=== PATIENT | female | born 1935 | race Caucasian/White ===

== ENCOUNTER 2020-11-12 09:00 | Inpatient (IN) | payer OTHER, MEDICARE, SELFPAY ==
[~2020-11-12] VITALS: Ht 149.9 cm; Wt 79.4 kg
[2020-11-12 09:00] VITALS: BP_SYST 136
[2020-11-12] MEDS ORDERED: DEXTROSE 50% JECT 50 ML DISP.SYRIN ONE (09:14)
[2020-11-12] MEDS ORDERED: POTA20TA83 PO (09:29)
[2020-11-12] MEDS ORDERED: SITA100T11 PO (09:29)
[2020-11-12] MEDS ORDERED: LEVO75TA7 PO (09:29)
[2020-11-12] MEDS ORDERED: FURO-149 PO (09:32)
[2020-11-12] MEDS ORDERED: INSU100V9 SQ (09:32)
[2020-11-12] MEDS ORDERED: LOSA100T3 PO (09:32)
[2020-11-12] MEDS ORDERED: HYDR25TA4 PO (09:32)
[2020-11-12] MEDS ORDERED: APIX2.5T PO (09:32)
[2020-11-12] MEDS ORDERED: GLIM2TAB PO (09:32)
[2020-11-12] MEDS ORDERED: MEMA5TAB PO (09:32)
[2020-11-12 09:50] LABS: ANION GAP 9 (5-15); CALCIUM 9.2 mg/dL (8.4-11.0); CHLORIDE 107 mmol/L (98-107); CREATININE 1.52 mg/dL (0.55-1.30); GLUCOSE 61 mg/dL (70-99); HEMOGLOBIN 10.5 g/dL (12.0-16.0); NEUTROPHILS # (AUTO) 3.9 K/uL (1.8-7.7); POTASSIUM 3.3 mmol/L (3.5-5.1); RED CELL DISTRIBUTION WIDTH 13.6 % (9.0-15.0); SODIUM SERUM 145 mmol/L (136-145); UREA NITROGEN, BLOOD 57 mg/dL (8-21); WHITE BLOOD COUNT (AUTO) 5.6 K/uL (4.8-10.8)
[2020-11-12 09:56] LABS: BASOPHILS % (AUTO) 0.3 % (0.0-2.0); EOSINOPHILS # (AUTO) 0.4 K/uL (0.0-0.4); EOSINOPHILS % (AUTO) 6.8 % (0.0-4.0); LYMPHOCYTES # (AUTO) 0.7 K/uL (1.0-5.5); LYMPHOCYTES % (AUTO) 11.8 % (20.5-51.5); MEAN CORPUSCULAR HEMOGLOBIN 32 pg (27-31); MEAN CORPUSCULAR HGB CONC 33 % (32-36); MEAN CORPUSCULAR VOLUME 97 fL (79.0-98.0); MONOCYTES # (AUTO) 0.6 K/uL (0.0-1.0); MONOCYTES % (AUTO) 11.2 % (1.7-9.3); NEUTROPHILS % (AUTO) 69.9 % (40.0-70.0); PLATELET COUNT (AUTO) 139 K/uL (130-430); RED BLOOD CELL COUNT(AUTO) 3.32 MIL/uL (4.2-6.2)
[2020-11-12 09:59] LABS: ALANINE AMINOTRANSFERASE 16 U/L (12-78); ALBUMIN 3.5 g/dL (3.4-4.8); ASPARTATE AMINOTRANSFERASE 28 U/L (10-37); LIPASE 76 U/L (73-393); TOTAL BILIRUBIN 0.3 mg/dL (0.0-1.0)
[2020-11-12 10:05] LABS: BILIRUBIN,URINE NEGATIVE (NEGATIVE); BLOOD, URINE NEGATIVE (NEGATIVE); CLARITY/URINE CLEAR (CLEAR); COLOR,URINE YELLOW (YELLOW); GLUCOSE,URINE NEGATIVE (NEGATIVE); KETONES,URINE NEGATIVE (NEGATIVE); LEUKOCYTE ESTERASE ,URINE NEGATIVE (NEGATIVE); NITRITE, URINE NEGATIVE (NEGATIVE); PROTEIN URINE NEGATIVE (NEGATIVE); UROBILINOGEN,URINE 0.2 (0.2-1.0)
[2020-11-12] MEDS ORDERED: POTASSIUM CHLORIDE 20 MEQ TAB.PRT.SR PO ONE ×2 (10:15→14:00)
[2020-11-12] MEDS ORDERED: D5LR 1,000 ML IV ONE (12:00)
[2020-11-12] MEDS ORDERED: DEXTROSE 50% JECT 50 ML DISP.SYRIN IVP PRN (13:15)
[2020-11-12] MEDS ORDERED: ONDANSETRON HCL 4 MG/2 ML VIAL IVP PRN (13:45)
[2020-11-12] MEDS ORDERED: DOCUSATE SODIUM 100 MG CAPSULE PO ONE (13:45)
[2020-11-12] MEDS ORDERED: ACETAMINOPHEN 325 MG TABLET PO PRN (13:45)
[2020-11-12] MEDS ORDERED: PANTOPRAZOLE SODIUM 40 MG TAB PO ONE (13:45)
[2020-11-12 13:52] LABS: TOTAL IRON BIND. CAPACITY 287 ug/dL (250-450)
[2020-11-12] MEDS ORDERED: MEMANTINE HCL 5 MG TABLET PO ONE (14:00)
[2020-11-12] MEDS ORDERED: LEVOTHYROXINE SODIUM 0.075 MG TABLET PO ONE (14:00)
[2020-11-12] MEDS ORDERED: APIXABAN 2.5 MG TABLET PO ONE (14:00)
[2020-11-12] MEDS ORDERED: LOSARTAN POTASSIUM 50 MG TABLET (COZAAR) PO ONE (14:00)
[2020-11-12 16:15] VITALS: BP_SYST 139
[2020-11-12 20:00] VITALS: BP_SYST 138
[2020-11-12] MEDS: DOCUSATE SODIUM 100 MG CAPSULE PO SCH (20:55)
[2020-11-12] MEDS: INSULIN REGULAR, HUMAN 100 UNITS/ML, 10 ML VIAL (humuLIN R) SUBCUT PRN (20:58)
[2020-11-13 01:41] VITALS: BP_SYST 147
[2020-11-13 05:50] LABS: BASOPHILS % (AUTO) 0.3 % (0.0-2.0); EOSINOPHILS # (AUTO) 0.4 K/uL (0.0-0.4); EOSINOPHILS % (AUTO) 5.7 % (0.0-4.0); HEMATOCRIT 29.9 % (36-48); HEMOGLOBIN 9.9 g/dL (12.0-16.0); LYMPHOCYTES # (AUTO) 0.9 K/uL (1.0-5.5); LYMPHOCYTES % (AUTO) 13.2 % (20.5-51.5); MEAN CORPUSCULAR HEMOGLOBIN 32 pg (27-31); MEAN CORPUSCULAR HGB CONC 33 % (32-36); MEAN CORPUSCULAR VOLUME 95 fL (79.0-98.0); MONOCYTES # (AUTO) 0.9 K/uL (0.0-1.0); MONOCYTES % (AUTO) 12.6 % (1.7-9.3); NEUTROPHILS # (AUTO) 4.9 K/uL (1.8-7.7); NEUTROPHILS % (AUTO) 68.2 % (40.0-70.0); PLATELET COUNT (AUTO) 135 K/uL (130-430); RED BLOOD CELL COUNT(AUTO) 3.15 MIL/uL (4.2-6.2); RED CELL DISTRIBUTION WIDTH 13.2 % (9.0-15.0); WHITE BLOOD COUNT (AUTO) 7.2 K/uL (4.8-10.8)
[2020-11-13 06:06] LABS: FOLATE (FOLIC ACID) 18.3 ng/mL (>3.0)
[2020-11-13 06:07] LABS: ALANINE AMINOTRANSFERASE 17 U/L (12-78); ALBUMIN 2.7 g/dL (3.4-4.8); ANION GAP 4 (5-15); ASPARTATE AMINOTRANSFERASE 19 U/L (10-37); CALCIUM 8.3 mg/dL (8.4-11.0); CHLORIDE 111 mmol/L (98-107); CREATININE 1.42 mg/dL (0.55-1.30); GLUCOSE 147 mg/dL (70-99); POTASSIUM 4.3 mmol/L (3.5-5.1); SODIUM SERUM 144 mmol/L (136-145); TOTAL BILIRUBIN 0.4 mg/dL (0.0-1.0); UREA NITROGEN, BLOOD 43 mg/dL (8-21)
[2020-11-13] MEDS: LEVOTHYROXINE SODIUM 0.075 MG TABLET PO SCH (06:27)
[2020-11-13 08:08] VITALS: BP_SYST 137
[2020-11-13] MEDS: LOSARTAN POTASSIUM 50 MG TABLET (COZAAR) PO SCH (08:13)
[2020-11-13] MEDS: PANTOPRAZOLE SODIUM 40 MG TAB PO SCH (08:16)
[2020-11-13] MEDS: MEMANTINE HCL 5 MG TABLET PO SCH (08:16)
[2020-11-13] MEDS: DOCUSATE SODIUM 100 MG CAPSULE PO SCH (08:46)
[2020-11-13] MEDS ORDERED: APIXABAN 2.5 MG TABLET PO SCH (09:00)
[2020-11-13] MEDS ORDERED: POTASSIUM CHLORIDE 20 MEQ TAB.PRT.SR PO SCH (09:00)
[2020-11-13 10:56] LABS: CHOLESTEROL 131 mg/dL (<200); HDL CHOLESTEROL 59 mg/dL (>55); LDL CHOLESTEROL 70 mg/dL (<100); TRIGLYCERIDES 66 mg/dL (30-150)
[2020-11-13 12:00] VITALS: BP_SYST 131
[2020-11-13] MEDS ORDERED: BALSAM PERU/CASTOR OIL 60 GM OINT...G. TP ONE (15:45)
[2020-11-13 16:00] VITALS: BP_SYST 129
[2020-11-13] MEDS: INSULIN REGULAR, HUMAN 100 UNITS/ML, 10 ML VIAL (humuLIN R) SUBCUT PRN (21:01)
[2020-11-13] MEDS: APIXABAN 2.5 MG TABLET PO SCH (21:02)
[2020-11-14 01:32] VITALS: BP_SYST 152
[2020-11-14] MEDS: LEVOTHYROXINE SODIUM 0.075 MG TABLET PO SCH (06:26)
[2020-11-14 06:39] LABS: BASOPHILS % (AUTO) 0.4 % (0.0-2.0); EOSINOPHILS # (AUTO) 0.5 K/uL (0.0-0.4); EOSINOPHILS % (AUTO) 4.9 % (0.0-4.0); HEMATOCRIT 33.1 % (36-48); HEMOGLOBIN 10.9 g/dL (12.0-16.0); LYMPHOCYTES # (AUTO) 0.9 K/uL (1.0-5.5); LYMPHOCYTES % (AUTO) 9.3 % (20.5-51.5); MEAN CORPUSCULAR HEMOGLOBIN 32 pg (27-31); MEAN CORPUSCULAR HGB CONC 33 % (32-36); MEAN CORPUSCULAR VOLUME 96 fL (79.0-98.0); MONOCYTES # (AUTO) 0.7 K/uL (0.0-1.0); MONOCYTES % (AUTO) 7.3 % (1.7-9.3); NEUTROPHILS # (AUTO) 7.4 K/uL (1.8-7.7); NEUTROPHILS % (AUTO) 78.1 % (40.0-70.0); PLATELET COUNT (AUTO) 139 K/uL (130-430); RED BLOOD CELL COUNT(AUTO) 3.45 MIL/uL (4.2-6.2); RED CELL DISTRIBUTION WIDTH 13.5 % (9.0-15.0); WHITE BLOOD COUNT (AUTO) 9.5 K/uL (4.8-10.8)
[2020-11-14 06:47] LABS: ANION GAP 6 (5-15); CALCIUM 8.6 mg/dL (8.4-11.0); CHLORIDE 110 mmol/L (98-107); CREATININE 1.14 mg/dL (0.55-1.30); GLUCOSE 135 mg/dL (70-99); POTASSIUM 3.9 mmol/L (3.5-5.1); SODIUM SERUM 145 mmol/L (136-145); UREA NITROGEN, BLOOD 32 mg/dL (8-21)
[2020-11-14 08:00] VITALS: BP_SYST 126
[2020-11-14] MEDS: PANTOPRAZOLE SODIUM 40 MG TAB PO SCH (08:54)
[2020-11-14] MEDS: MEMANTINE HCL 5 MG TABLET PO SCH (08:54)
[2020-11-14] MEDS: LOSARTAN POTASSIUM 50 MG TABLET (COZAAR) PO SCH (08:55)
[2020-11-14] MEDS: APIXABAN 2.5 MG TABLET PO SCH (08:56)
[2020-11-14] MEDS ORDERED: BALSAM PERU/CASTOR OIL 60 GM OINT...G. TP SCH (09:00)
[2020-11-14] MEDS ORDERED: MULTIVITS,CA,MINERALS/IRON/FA 1 TABLET PO SCH (09:00)
[2020-11-14] MEDS ORDERED: DILTIAZEM HCL 25 MG/5 ML VIAL IVP PRN (09:15)
[2020-11-14 12:13] VITALS: BP_SYST 127
[2020-11-14 13:44] VITALS: BP_SYST 104
[2020-11-14 16:04] VITALS: BP_SYST 104
== END 2020-11-14 17:20 | disposition home health service (06) | DRG 70 ==
LOC: SED 09:00 → STU 11:58
PROVIDERS: ADMIT Internal Medicine; ATTEND Internal Medicine
DX: G93.41 Metabolic encephalopathy (principal); I21.A1 Myocardial infarction type 2; N17.0 Acute kidney failure with tubular necrosis; D68.59 Other primary thrombophilia; E44.0 Moderate protein-calorie malnutrition; E11.649 Type 2 diabetes mellitus with hypoglycemia without coma; E87.6 Hypokalemia; E03.9 Hypothyroidism, unspecified; D64.9 Anemia, unspecified; E86.0 Dehydration; I48.0 Paroxysmal atrial fibrillation; E66.9 Obesity, unspecified; Z20.822 Contact with and (suspected) exposure to COVID-19; I10 Essential (primary) hypertension; F03.90 Unspecified dementia, unspecified severity, without behavioral disturbance, psychotic disturbance, mood disturbance, and anxiety; T50.2X5A Adverse effect of carbonic-anhydrase inhibitors, benzothiadiazides and other diuretics, initial encounter; Z79.01 Long term (current) use of anticoagulants; Z79.899 Other long term (current) drug therapy; Z95.2 Presence of prosthetic heart valve; Z79.4 Long term (current) use of insulin; Z86.73 Personal history of transient ischemic attack (TIA), and cerebral infarction without residual deficits; Y92.89 Other specified places as the place of occurrence of the external cause; Z68.35 Body mass index [BMI] 35.0-35.9, adult
CPT/HCPCS: 36415; 71045; 80048; 80053; 80061; 81003; 82607; 82746; 82962; 83036; 83540; 83550; 83690; 84484; 85025; 93005; 93306; 96360; 97116-GP; 97530-GP; 99285; G0378; J1815

== ENCOUNTER 2021-11-14 10:12 | Inpatient (IN) | payer OTHER, MEDICARE ==
[~2021-11-14] VITALS: Ht 152.4 cm; Wt 73.1 kg
[2021-11-14 10:12] VITALS: BP_SYST 115
[~2021-11-14 10:12] MED LIST: APIX2.5T PO; LEVO75TA7 PO; LOSA100T3 PO; MEMA5TAB PO; SITA100T11 PO
[2021-11-14] MEDS ORDERED: ASPIRIN 81 MG TAB.CHEW PO ONE (10:30)
--- NOTE | 2021-11-14 10:34 | NUR ---
Pt present via EMS with report of SOB. Pt currently in afib w. RVR rtae in the 140s. 20G started on pt. pt placed on 2L in bed 1
--- NOTE | 2021-11-14 10:35 | NUR ---
Pt seen by ED physician at bedside
[2021-11-14 10:40] LABS: BASOPHILS % (AUTO) 0.4 % (0.0-2.0); EOSINOPHILS # (AUTO) 0.3 K/uL (0.0-0.4); EOSINOPHILS % (AUTO) 3.4 % (0.0-4.0); HEMATOCRIT 30.3 % (36-48); LYMPHOCYTES # (AUTO) 0.5 K/uL (1.0-5.5); LYMPHOCYTES % (AUTO) 5.5 % (20.5-51.5); MEAN CORPUSCULAR HEMOGLOBIN 31 pg (27-31); MEAN CORPUSCULAR HGB CONC 33 % (32-36); MEAN CORPUSCULAR VOLUME 93 fL (79.0-98.0); MONOCYTES # (AUTO) 1.2 K/uL (0.0-1.0); MONOCYTES % (AUTO) 13.7 % (1.7-9.3); NEUTROPHILS # (AUTO) 6.6 K/uL (1.8-7.7); PLATELET COUNT (AUTO) 222 K/uL (130-430); RED BLOOD CELL COUNT(AUTO) 3.26 MIL/uL (4.2-6.2); RED CELL DISTRIBUTION WIDTH 13.6 % (9.0-15.0); WHITE BLOOD COUNT (AUTO) 8.5 K/uL (4.8-10.8)
[2021-11-14] MEDS ORDERED: dilTIAZem HCL IVP 5 MG/ML VIAL IVP ONE ×2 (10:45→11:15)
[2021-11-14 10:49] LABS: ANION GAP 10 (5-15); CALCIUM 8.8 mg/dL (8.4-11.0); CHLORIDE 106 mmol/L (98-107); CREATININE 1.36 mg/dL (0.55-1.30); GLUCOSE 171 mg/dL (70-99); POTASSIUM 3.8 mmol/L (3.5-5.1); SODIUM SERUM 140 mmol/L (136-145); UREA NITROGEN, BLOOD 39 mg/dL (8-21)
[2021-11-14 10:57] LABS: INR 1.3 (0.8-1.2); PROTHROMBIN TIME 12.7 SECS (9.5-12.5)
[2021-11-14 10:58] LABS: ALANINE AMINOTRANSFERASE 21 U/L (12-78); ASPARTATE AMINOTRANSFERASE 26 U/L (10-37); TOTAL BILIRUBIN 0.5 mg/dL (0.0-1.0)
[2021-11-14] MEDS ORDERED: NITROGLYCERIN 1 INCH (GM) OINT. TP ONE (12:45)
[2021-11-14] MEDS ORDERED: FUROSEMIDE 40 MG/4 ML VIAL IVP ONE (12:45)
[2021-11-14] MEDS ORDERED: HYDROcodone/ACETAMIN 5-325 MG TAB (NORCO/ VICODIN) PO PRN (13:15)
[2021-11-14] MEDS ORDERED: ACETAMINOPHEN 325 MG TABLET PO PRN ×2 (13:15→13:30)
[2021-11-14] MEDS ORDERED: ONDANSETRON HCL 4 MG/2 ML VIAL IVP PRN (13:15)
[2021-11-14] MEDS ORDERED: HYDROcodone/ACETAMIN 10-325 MG TAB PO PRN (13:15)
--- NOTE | 2021-11-14 13:23 | NUR ---
20g IV initiated treatment in progress. Family at bedside. Will continue to monitor pt
--- NOTE | 2021-11-14 13:52 | NUR ---
Pt given intitial bolus of 0.25mg/kg of diltiazem bolus per physician orders. infused over 2 mins.
[2021-11-14 14:13] VITALS: BP_SYST 144
[2021-11-14] MEDS: NORMAL SALINE 5 ML DISP.SYRIN IVF SCH ×2 (14:47→22:09)
--- NOTE | 2021-11-14 14:52 | NUR ---
Pt Diltiazem drip titrated to 10mg/hr per physician orders.
--- NOTE | 2021-11-14 15:07 | NUR ---
Admit bed requested Patient will be admitted to care of . Admitted to unit. Diagnosis Inpatient (Yes or No) Observation (Yes or No) Orientation concerns or request close to nursing station (Yes or No) Covid Status On vent or bipap Isolation requirements Needs a sitter From Home (Yes or if No enter name of facility) Requires Dialysis (Yes or No) Med Rec Completed (Yes of No)
--- NOTE | 2021-11-14 15:09 | NUR ---
Patient will be admitted to care of Dr. Ni. Admitted to unit. Will go to room . Belongings list completed. Complete and up to date summary report printed. SBAR report to be given at bedside with opportunity for questions.
--- NOTE | 2021-11-14 15:22 | NUR ---
ADMISSION NOTE Received patient from ER via gurney. Patient admitted with diagnosis of Atrial Fibrillation. Patient is awake, alert, oriented X 1. Patient oriented to hospital room, call light, toileting, pain management and safety-teach back done. Patient informed that their room number is 121 C. Personal belongings checked and Belongings List documented. Call light within reach.
--- NOTE | 2021-11-14 15:27 | NUR ---
Pt transported to floor by EDT accompanied by ED RN on monitor with O2 on 2L in no aucte distress. IV infusing diltiazem. Bedside report given to Anaid GARCÍA.
--- NOTE | 2021-11-14 15:30 | NUR ---
CONSULTATION PAGED/CALLED Reason for Consultation: [] ACUTE KIDNEY INJURY Person Who was Notified: [] JACOBY Consulting Physician: [] DR COLEMAN Clinic Clerk Specialty: [] NEPHRO Ordering Physician: [] DR SANDERS
--- NOTE | 2021-11-14 15:31 | NUR ---
CONSULTATION PAGED/CALLED Reason for Consultation: [] RESP FAIL Person Who was Notified: [] GASTON Consulting Physician: [] DR SAUNDERS Dbas Specialty: [] PULMO Ordering Physician: [] DR SANDERS
[2021-11-14 16:00] VITALS: BP_SYST 124
[2021-11-14] MEDS: INSULIN REGULAR, HUMAN 100 UNITS/ML, 10 ML VIAL (humuLIN R) SUBCUT PRN ×2 (16:42→22:12)
--- NOTE | 2021-11-14 20:30 | NUR ---
CLOSING NOTES: PATIENT RESTING IN BED. BREATHING EVEN AND NON LABORED TO O2 AT 6L/FM. FALL AND SAFETY MEASURES PROVIDED. ENDORSED TO TRUCK ENGINE TECHNICIAN RN. ALL NEEDS MET THROUGHOUT SHIFT.
--- NOTE | 2021-11-14 20:35 | NUR ---
Opening note Received patient resting in bed, eyes open. No distress , oxygen saturation is 99% on simple mask at 6L. She has two IV's one to left hand and one to LAC and both are SL. Daughter is visiting and sitting at bedside. Her meal tray is at bedside and has not been touched, she did not want to eat. Bed is locked in lowest position, side rails up and bed alarm on.
[2021-11-14 21:05] VITALS: BP_SYST 135
[2021-11-15 00:34] VITALS: BP_SYST 119
[2021-11-15 06:07] LABS: BASOPHILS % (AUTO) 0.2 % (0.0-2.0); EOSINOPHILS # (AUTO) 0.3 K/uL (0.0-0.4); EOSINOPHILS % (AUTO) 3.3 % (0.0-4.0); HEMATOCRIT 29.6 % (36-48); HEMOGLOBIN 9.6 g/dL (12.0-16.0); LYMPHOCYTES # (AUTO) 0.5 K/uL (1.0-5.5); LYMPHOCYTES % (AUTO) 7.1 % (20.5-51.5); MEAN CORPUSCULAR HEMOGLOBIN 30 pg (27-31); MEAN CORPUSCULAR HGB CONC 33 % (32-36); MEAN CORPUSCULAR VOLUME 93 fL (79.0-98.0); MONOCYTES # (AUTO) 1.2 K/uL (0.0-1.0); NEUTROPHILS # (AUTO) 5.7 K/uL (1.8-7.7); NEUTROPHILS % (AUTO) 73.4 % (40.0-70.0); PLATELET COUNT (AUTO) 225 K/uL (130-430); WHITE BLOOD COUNT (AUTO) 7.7 K/uL (4.8-10.8)
[2021-11-15] MEDS: NORMAL SALINE 5 ML DISP.SYRIN IVF SCH ×3 (06:15→22:26)
[2021-11-15 06:55] LABS: ALANINE AMINOTRANSFERASE 21 U/L (12-78); ALBUMIN 2.6 g/dL (3.4-4.8); ANION GAP 7 (5-15); ASPARTATE AMINOTRANSFERASE 25 U/L (10-37); CALCIUM 8.2 mg/dL (8.4-11.0); CHLORIDE 109 mmol/L (98-107); CREATININE 1.21 mg/dL (0.55-1.30); GLUCOSE 97 mg/dL (70-99); PHOSPHORUS 3.2 mg/dL (2.7-4.5); POTASSIUM 3.6 mmol/L (3.5-5.1); SODIUM SERUM 143 mmol/L (136-145); TOTAL BILIRUBIN 0.4 mg/dL (0.0-1.0); UREA NITROGEN, BLOOD 35 mg/dL (8-21)
[2021-11-15 07:50] VITALS: BP_SYST 126
--- NOTE | 2021-11-15 08:00 | NUR ---
am notes receive dpt in bed. a/ox1. denies any pain or sob. pt is on simple mask 5 l. pt switched to oximizer by rt 5 l saturation 95% /hob elevated. hr 100. on tele afib. res michael and unlabored. safety and fall precautions in place. call light within reach . will conitnue to monitor
[2021-11-15] MEDS: LEVOTHYROXINE SODIUM 0.075 MG TABLET PO SCH (08:48)
[2021-11-15] MEDS: MEMANTINE HCL 5 MG TABLET PO SCH (08:48)
[2021-11-15] MEDS: LOSARTAN POTASSIUM 50 MG TABLET (COZAAR) PO SCH (08:50)
[2021-11-15] MEDS: APIXABAN 2.5 MG TABLET PO SCH (08:51)
[2021-11-15] MEDS ORDERED: FUROSEMIDE 20 MG/2 ML VIAL IVP ONE (09:00)
[2021-11-15] MEDS ORDERED: FUROSEMIDE 20 MG/2 ML VIAL IVP SCH (09:00)
--- NOTE | 2021-11-15 10:44 | NUR ---
CONSULTATION PAGED/CALLED Reason for Consultation: [] AFIB Person Who was Notified: [] DR SANDERS Consulting Physician: [] DR Asaf SANDERS Internet Media Planner Specialty: [] CARDIO Ordering Physician: [] DR Duncan SANDERS
--- NOTE | 2021-11-15 10:45 | NUR ---
md visit seen seen by dr erick waldron . daughter at bed side. poc discussed verbalized understndeing. o2 saturation 95% on 5 l oximizer. notin acute res distress. will conintue to monitor
[2021-11-15] MEDS: DILTIAZEM HCL 60 MG TABLET PO SCH ×2 (11:28→18:15)
[2021-11-15 12:27] VITALS: BP_SYST 154
[2021-11-15 16:16] VITALS: BP_SYST 147
[2021-11-15] MEDS: FUROSEMIDE 20 MG/2 ML VIAL IVP SCH (16:27)
[2021-11-15] MEDS: INSULIN REGULAR, HUMAN 100 UNITS/ML, 10 ML VIAL (humuLIN R) SUBCUT PRN ×2 (17:20→21:34)
--- NOTE | 2021-11-15 18:46 | NUR ---
CLOSING NOTES PT IN BED denies any pain or sob. pt is on simple mask 6 l. saturation 95%. /hob elevated. hr 94. on tele sr. res even and unlabored. safety and fall precautions in place. call light within reach .daughter at bed side. will endorse to day night nurse
[2021-11-15 20:00] VITALS: BP_SYST 125
[2021-11-15] MEDS: IPRATROPIUM BROM 0.5 MG/2.5 ML VIAL.NEB (ATROVENT) INH PRN (23:33)
[2021-11-15] MEDS: ALBUTEROL SULFATE 0.083% 2.5 MG/3 ML VIAL.NEB INH PRN (23:33)
[2021-11-16 00:45] VITALS: BP_SYST 101; BP_SYST 171
[2021-11-16] MEDS: FUROSEMIDE 20 MG/2 ML VIAL IVP SCH ×2 (06:10→18:36)
[2021-11-16 06:13] LABS: BASOPHILS % (AUTO) 0.2 % (0.0-2.0); EOSINOPHILS # (AUTO) 0.3 K/uL (0.0-0.4); EOSINOPHILS % (AUTO) 2.5 % (0.0-4.0); HEMATOCRIT 28.2 % (36-48); HEMOGLOBIN 9.3 g/dL (12.0-16.0); LYMPHOCYTES # (AUTO) 0.7 K/uL (1.0-5.5); LYMPHOCYTES % (AUTO) 6.3 % (20.5-51.5); MEAN CORPUSCULAR HEMOGLOBIN 31 pg (27-31); MEAN CORPUSCULAR HGB CONC 33 % (32-36); MEAN CORPUSCULAR VOLUME 92 fL (79.0-98.0); MONOCYTES # (AUTO) 1.5 K/uL (0.0-1.0); MONOCYTES % (AUTO) 14.3 % (1.7-9.3); NEUTROPHILS # (AUTO) 8.1 K/uL (1.8-7.7); NEUTROPHILS % (AUTO) 76.7 % (40.0-70.0); PLATELET COUNT (AUTO) 220 K/uL (130-430); RED BLOOD CELL COUNT(AUTO) 3.06 MIL/uL (4.2-6.2); RED CELL DISTRIBUTION WIDTH 13.7 % (9.0-15.0); WHITE BLOOD COUNT (AUTO) 10.5 K/uL (4.8-10.8)
[2021-11-16] MEDS: NORMAL SALINE 5 ML DISP.SYRIN IVF SCH ×3 (06:26→21:37)
[2021-11-16 06:46] LABS: ANION GAP 8 (5-15); CALCIUM 8.2 mg/dL (8.4-11.0); CHLORIDE 108 mmol/L (98-107); CREATININE 1.27 mg/dL (0.55-1.30); GLUCOSE 134 mg/dL (70-99); POTASSIUM 3.7 mmol/L (3.5-5.1); SODIUM SERUM 142 mmol/L (136-145); UREA NITROGEN, BLOOD 35 mg/dL (8-21)
[2021-11-16] MEDS: DILTIAZEM HCL 60 MG TABLET PO SCH ×4 (06:54→18:20)
[2021-11-16 07:30] VITALS: BP_SYST 127
--- NOTE | 2021-11-16 07:30 | NUR ---
OPENING NOTE Patient is resting in bed, AxO x4. No sign of distress, patient denies pain at this time. Patient aware that she is going to receive a blood transfusion later today per MD orders. IV is clean, dry, patent and running prescribed fluids. All needs met at this time and safety checks made. Will continue to monitor. Addendum: 11/16/21 at 0837 by Olinda Garcia LVN DISREGARD: CHARTED ON WRONG PATIENT
--- NOTE | 2021-11-16 07:31 | NUR ---
OPENING NOTE Patient is resting in bed with simple mask on, oxygen 93% on 10L. IV sites are clean, dry, intact and patent. No complaints of pain. Patient is taking quick shallow breaths. All needs met at this time, will continue to monitor.
--- NOTE | 2021-11-16 07:31 | NUR ---
OPENING NOTE Patient in bed resting with simple mask on, oxygen saturation 93% on 10L. Patient is oriented to self and place. Encouraged patient to take deep breaths and sat her up straighter in bed. Called respiratory for a breathing treatment for the patient. All needs met at this time and safety checks made. Will continue to monitor.
[2021-11-16] MEDS: IPRATROPIUM BROM 0.5 MG/2.5 ML VIAL.NEB (ATROVENT) INH PRN (07:42)
[2021-11-16] MEDS: ALBUTEROL SULFATE 0.083% 2.5 MG/3 ML VIAL.NEB INH PRN (07:42)
[2021-11-16] MEDS: METHYLPREDNISOLONE SOD SUCC 40 MG/ML VIAL IVP SCH (08:13)
--- NOTE | 2021-11-16 08:20 | NUR ---
RN AND RESPIRATORY THERAPIST REQUEST TO DEFER PHYSICAL THERAPY EVALUATION TODAY DUE TO THE PATIENT'S RESPIRATORY NEEDS.
--- NOTE | 2021-11-16 08:44 | NUR ---
PAGED Paged Dr Dumont to inform him of patient's status. Patient has an oxygen saturation of 90% on 10L simple mask. Awaiting call back.
[2021-11-16 08:51] VITALS: BP_SYST 133
--- NOTE | 2021-11-16 08:59 | NUR ---
SPOKE TO MD Informed Dr Dumont of the patient's status (90% on 10L simple mask, respirations 30). New orders received.
--- NOTE | 2021-11-16 09:52 | NUR ---
BIPAP Patient placed on bipap per MD orders. Tolerating well, oxygen saturation 95% on 45%.
[2021-11-16] MEDS: LOSARTAN POTASSIUM 50 MG TABLET (COZAAR) PO SCH (10:57)
[2021-11-16] MEDS: MEMANTINE HCL 5 MG TABLET PO SCH (10:57)
[2021-11-16] MEDS: LEVOTHYROXINE SODIUM 0.075 MG TABLET PO SCH (10:58)
[2021-11-16] MEDS: APIXABAN 2.5 MG TABLET PO SCH (11:00)
[2021-11-16] MEDS ORDERED: AZITHROMYCIN 500 MG in NS 250 ML IV SCH (11:00)
[2021-11-16] MEDS: cefTRIAXone 1 GM IVPB PREMIX 50 ML IV SCH (11:16)
[2021-11-16 12:00] VITALS: BP_SYST 115
[2021-11-16] MEDS: INSULIN REGULAR, HUMAN 100 UNITS/ML, 10 ML VIAL (humuLIN R) SUBCUT PRN ×3 (14:29→21:44)
--- NOTE | 2021-11-16 15:00 | NUR ---
ROUNDS Patient resting in bed with eyes closed, daughter at bedside. Patient has been cooperative with wearing her bipap and oxygenation has been 95%. No sign of distress or pain at this time. Provided pillow support for the patient as well as comfort measures. All needs met at this time, will continue to monitor.
[2021-11-16 16:00] VITALS: BP_SYST 119
--- NOTE | 2021-11-16 19:30 | NUR ---
Opening note Received patient resting in bed, awak, no distress , oxygen saturation is 95% on simple mask at 7.5L. She has two IV's one to left hand and one to LAC and both are SL. Daughter is visiting and sitting at bedside. Bed is locked in lowest position, side rails up and bed alarm on.
[2021-11-16 20:00] VITALS: BP_SYST 124
--- NOTE | 2021-11-16 20:10 | NUR ---
Patient care Patient is incontinent - voided and she was provided with pericare, bed bath, new gown and linens. She was repositioned and turned. Safety precautions in place. Daughter is visiting with patient.
--- NOTE | 2021-11-16 20:13 | NUR ---
CLOSING NOTE Patient in bed resting with daughter at bedside. Per respiratory, patient currently has a nasal cannula on at 3L, oxygen saturation 93%. Patient's oxygenation drops when she talks or eats. Reminded patient to take deep breaths and breath through her nose, not her mouth while she has the nasal cannula on. All needs met at this time and safety checks made. Endorsed to underwear cutter nurse and answered all questions.
[2021-11-17] VITALS (8 sets, daily range): BP systolic 111–139
[2021-11-17] MEDS: DILTIAZEM HCL 60 MG TABLET PO SCH ×5 (01:00→22:52)
--- NOTE | 2021-11-17 01:00 | NUR ---
BIPAP Presently on BIPAP, saturation is 93-94%. Scheduled Cardizem given. Patient was provided w/pericare, repositioned and turned. wctm
--- NOTE | 2021-11-17 04:34 | NUR ---
simple mask Bipap was removed by RT and replaced with simple mask at 8L, tolerating and saturation is 95%
--- NOTE | 2021-11-17 05:30 | NUR ---
wound care, pictures taken
[2021-11-17] MEDS: FUROSEMIDE 20 MG/2 ML VIAL IVP SCH ×2 (06:16→17:07)
[2021-11-17] MEDS: NORMAL SALINE 5 ML DISP.SYRIN IVF SCH ×3 (06:17→20:32)
[2021-11-17] MEDS: INSULIN REGULAR, HUMAN 100 UNITS/ML, 10 ML VIAL (humuLIN R) SUBCUT PRN ×4 (06:19→20:35)
--- NOTE | 2021-11-17 07:20 | NUR ---
Dr. Dumont rounds Dr. Dumont at bedside to see patient; new orders for swallow eval.
--- NOTE | 2021-11-17 07:30 | NUR ---
OPENING NOTE Patient in bed resting, no sign of distress and denies pain. Patient is alert only to self at this time. Patient has a simple mask on, 8L. Patient's oxygenation is 93%. Patient aware that the physician has ordered a swallow evaluation for her and she is unable to eat or drink until then. IV site is clean, dry, intact and patent. All needs met at this time, safety checks made. Will continue to monitor.
[2021-11-17 07:56] LABS: ALANINE AMINOTRANSFERASE 12 U/L (12-78); ALBUMIN 2.4 g/dL (3.4-4.8); ANION GAP 10 (5-15); ASPARTATE AMINOTRANSFERASE 22 U/L (10-37); CALCIUM 8.1 mg/dL (8.4-11.0); CHLORIDE 108 mmol/L (98-107); GLUCOSE 221 mg/dL (70-99); PHOSPHORUS 3.1 mg/dL (2.7-4.5); POTASSIUM 4.1 mmol/L (3.5-5.1); SODIUM SERUM 142 mmol/L (136-145); TOTAL BILIRUBIN 0.4 mg/dL (0.0-1.0); UREA NITROGEN, BLOOD 52 mg/dL (8-21)
--- NOTE | 2021-11-17 08:10 | NUR ---
PHYSICAL THERAPY IN TO SEE PATIENT PT was able to work with the patient this morning. Patient was able to stand at bedside and take a few steps. Patient is easily winded and her oxygen saturation dropped from 91% to 86% while out of bed. Patient back in bed and comfortable. All needs met at this time.
[2021-11-17 08:11] LABS: BASOPHILS % (AUTO) 0.3 % (0.0-2.0); HEMATOCRIT 30.1 % (36-48); HEMOGLOBIN 9.8 g/dL (12.0-16.0); LYMPHOCYTES # (AUTO) 0.4 K/uL (1.0-5.5); LYMPHOCYTES % (AUTO) 2.5 % (20.5-51.5); MEAN CORPUSCULAR HEMOGLOBIN 30 pg (27-31); MEAN CORPUSCULAR HGB CONC 33 % (32-36); MEAN CORPUSCULAR VOLUME 93 fL (79.0-98.0); MONOCYTES # (AUTO) 0.8 K/uL (0.0-1.0); MONOCYTES % (AUTO) 5.3 % (1.7-9.3); NEUTROPHILS # (AUTO) 13.5 K/uL (1.8-7.7); NEUTROPHILS % (AUTO) 91.9 % (40.0-70.0); PLATELET COUNT (AUTO) 260 K/uL (130-430); RED BLOOD CELL COUNT(AUTO) 3.24 MIL/uL (4.2-6.2); RED CELL DISTRIBUTION WIDTH 13.7 % (9.0-15.0)
[2021-11-17 08:29] LABS: WHITE BLOOD COUNT (AUTO) 14.7 K/uL (4.8-10.8)
[2021-11-17] MEDS: LOSARTAN POTASSIUM 50 MG TABLET (COZAAR) PO SCH (09:00)
[2021-11-17 09:26] LABS: ERYTHROCYTE SEDIMENTATION RATE 108 MM/HR (0-20)
[2021-11-17 09:28] LABS: C-REACTIVE PROTEIN QUANT 40.7 mg/dL (0-0.5)
[2021-11-17] MEDS: LEVOTHYROXINE SODIUM 0.075 MG TABLET PO SCH (09:33)
[2021-11-17] MEDS: MEMANTINE HCL 5 MG TABLET PO SCH (09:33)
[2021-11-17] MEDS: APIXABAN 2.5 MG TABLET PO SCH (09:34)
[2021-11-17] MEDS: METHYLPREDNISOLONE SOD SUCC 40 MG/ML VIAL IVP SCH (09:47)
[2021-11-17] MEDS: cefTRIAXone 1 GM IVPB PREMIX 50 ML IV SCH (09:49)
--- NOTE | 2021-11-17 12:00 | NUR ---
ROUNDS Patient in bed resting with daughter at bedside. Patient is awake and alert, oriented to self. Simple mask in place on 6L, patient's oxygen 95%. No complaints of pain, no sign of distress. IV is clean, dry, intact and patent. Patient is currently NPO awaiting swallow eval. All needs met at this time and safety checks made. Will continue to monitor.
--- NOTE | 2021-11-17 16:51 | NUR ---
ST EVALUATION COMPLETED. ST TX NOT INDICATED AT THIS TIME. RECOMMEND PO DIET OF MECHANICAL SOFT/THIN LIQUID. 1:1 SUPERVISION FOR ASPIRATION PRECAUTIONS.
--- NOTE | 2021-11-17 18:17 | NUR ---
CLOSING NOTE Patient in bed resting with daughter at bedside. Patient is eating her mechanical soft dinner, tolerating well. IV is clean, dry, intact and patent. Patient has a high flow nasal cannula in place on 6L, oxygen saturation 95%. Patient is awake and alert, oriented to self. All needs met at this time and safety checks made. Will endorse to slot shift manager nurse.
--- NOTE | 2021-11-17 19:15 | NUR ---
change of shift.pt.presents quiescent affect;calm,resting.pt.present.o2 therapy via oximizer.rate;6l/min;o2-sat%=94%. pt's loc confused.incapable to answer appropriate to simple q's.pt.presents bedrest activity status.call light/telephone w/in access of the pt.
--- NOTE | 2021-11-17 20:00 | NUR ---
pt.assessed.v/s assesed values wnl.pt.presents loc:confused/affect;restless.iv access intact iv fluids infusing.oximizer intact 02-sat%=94%.per flacc pain mgx pt.absent facial grimaces/body posturing.pt.assessed for cleanliness.pt.repositioned.call light/telephone placed w/in access of the pt.
--- NOTE | 2021-11-17 20:30 | NUR ---
blood glucose assessed;value;381mg/dl.
--- NOTE | 2021-11-17 21:00 | NUR ---
i hgavadmisterwd insul;in:libby;lr;10-u p[er s;ldingf scal/.ew
--- NOTE | 2021-11-17 22:00 | NUR ---
pt.assessed.pt.presents resting/restless status.dtr.present.per flacc pain mgx pt.absent facial grimaces/body posturing. pt.assessed for cleanliness.pt.cleaned/repositioned.call light/telephone place w/in access of the pt.
[2021-11-17] MEDS: LORazepam 2 MG/ML VIAL IVP PRN (22:54)
--- NOTE | 2021-11-17 23:00 | NUR ---
pt.presents anxious/restless status.i have administered ativan;1mg ivp.i have administered cardizem midnight dose@this hour.to circumvent the ativan sedation effects.call light/telephone placed w/in access of the pt.
[2021-11-18] VITALS: BP_SYST 115
--- NOTE | 2021-11-18 | NUR ---
pt.assessed.v/s assessed values wnl.pt.presents quiescent afect;calm,somnolent.s/p ativan:1mg ivp administration.per flacc pain mgx pt.absent facial grimaces/body posturing.pt.assessed for cleanliness.pt.repositioned.o2-sat%=96%r/t placed bi-pap@this hour. call light/telephone placed w/in access of the pt.
--- NOTE | 2021-11-18 02:00 | NUR ---
pt.assessed.pt.presents quiescent affect;calm,somnolent.bi-pap intact o2-sat%=96%.per flacc pain mgx pt.absent facial grimaces/body posturing.pt.assessed for cleanliness.pt.repositioned.call light/telepho apce winacces sof thpt.
--- NOTE | 2021-11-18 04:00 | NUR ---
PT.ASSESSED.PT.PRESENTS QUIESCENT AFFECT;CALM,SOMNOLENT.PER FLACC PAIN MGX PT.ABSENT FACIAL GRIMACES/BODY POSTURING.PT.ASSESSED FOR CLEANLINESS.PT.REPOSITIONED.CALL LIGHT/TELEPHONE PLACED W/IN ACCESS OF THE PT.O2- SAT%=96%.BI-PAP INTACT.
[2021-11-18 05:00] VITALS: BP_SYST 125
[2021-11-18] MEDS: NORMAL SALINE 5 ML DISP.SYRIN IVF SCH ×3 (05:43→22:15)
[2021-11-18] MEDS: DILTIAZEM HCL 60 MG TABLET PO SCH ×5 (05:44→23:41)
[2021-11-18] MEDS: FUROSEMIDE 20 MG/2 ML VIAL IVP SCH ×2 (05:45→18:22)
[2021-11-18] MEDS: INSULIN REGULAR, HUMAN 100 UNITS/ML, 10 ML VIAL (humuLIN R) SUBCUT PRN ×4 (05:48→20:48)
--- NOTE | 2021-11-18 06:09 | NUR ---
pt.assessed.v/s assessed p/t cardizem administration.bi-pap intact o2-sat%=96%.blood glucose assessed value;274mg/dl. i have administered insulin;regular;6-u.pt.repositioned.call light/telephone placed w/in access of the pt.
[2021-11-18 07:56] LABS: BASOPHILS % (AUTO) 0.1 % (0.0-2.0); HEMATOCRIT 30.5 % (36-48); HEMOGLOBIN 9.8 g/dL (12.0-16.0); LYMPHOCYTES # (AUTO) 0.3 K/uL (1.0-5.5); LYMPHOCYTES % (AUTO) 1.8 % (20.5-51.5); MEAN CORPUSCULAR HEMOGLOBIN 30 pg (27-31); MEAN CORPUSCULAR HGB CONC 32 % (32-36); MEAN CORPUSCULAR VOLUME 92 fL (79.0-98.0); MONOCYTES # (AUTO) 0.9 K/uL (0.0-1.0); MONOCYTES % (AUTO) 5.2 % (1.7-9.3); NEUTROPHILS # (AUTO) 15.3 K/uL (1.8-7.7); NEUTROPHILS % (AUTO) 92.9 % (40.0-70.0); PLATELET COUNT (AUTO) 242 K/uL (130-430); RED CELL DISTRIBUTION WIDTH 13.7 % (9.0-15.0); WHITE BLOOD COUNT (AUTO) 16.5 K/uL (4.8-10.8)
[2021-11-18 08:01] LABS: ANION GAP 12 (5-15); CALCIUM 8.4 mg/dL (8.4-11.0); CHLORIDE 108 mmol/L (98-107); CREATININE 1.47 mg/dL (0.55-1.30); GLUCOSE 299 mg/dL (70-99); PHOSPHORUS 3.3 mg/dL (2.7-4.5); POTASSIUM 4.1 mmol/L (3.5-5.1); SODIUM SERUM 146 mmol/L (136-145); UREA NITROGEN, BLOOD 62 mg/dL (8-21)
--- NOTE | 2021-11-18 08:20 | NUR ---
rt notes 0820 Offloaded pt from bipap, placed pt back on 8L Oxymizer. Pt saturating 93%. will continue to monitor pt. RAQUEL Caballero aware of changes.
[2021-11-18 08:38] LABS: C-REACTIVE PROTEIN QUANT 26.2 mg/dL (0-0.5)
[2021-11-18 09:19] LABS: ERYTHROCYTE SEDIMENTATION RATE 99 MM/HR (0-20)
[2021-11-18] MEDS: METHYLPREDNISOLONE SOD SUCC 40 MG/ML VIAL IVP SCH (09:48)
[2021-11-18] MEDS: MEMANTINE HCL 5 MG TABLET PO SCH (09:49)
[2021-11-18] MEDS: LEVOTHYROXINE SODIUM 0.075 MG TABLET PO SCH (09:49)
[2021-11-18] MEDS: LOSARTAN POTASSIUM 50 MG TABLET (COZAAR) PO SCH (09:49)
[2021-11-18] MEDS: cefTRIAXone 1 GM IVPB PREMIX 50 ML IV SCH (09:50)
[2021-11-18] MEDS: APIXABAN 2.5 MG TABLET PO SCH (09:51)
[2021-11-18 11:30] VITALS: BP_SYST 127
--- NOTE | 2021-11-18 11:37 | NUR ---
Dr. Domitila Ni made aware of positive blood culture results. He was aware of the results no new orders at this time
--- NOTE | 2021-11-18 12:27 | NUR ---
CONSULTATION PAGED/CALLED Reason for Consultation: [] LEUKOCYTOSIS Person Who was Notified: [] CASE Consulting Physician: [] DR HERRERA Steamfitter Supervisor Specialty: [] ID Ordering Physician: [] DR SANDERS
[2021-11-18 15:53] VITALS: BP_SYST 148
--- NOTE | 2021-11-18 15:55 | NUR ---
Spoke w/ patient's daughter,Aliyah. She stated her mother has a hospital bed and FWW at home. She also has 40 hrs a week caregiver w/ visiting [place] that the family plans to increase the hours when she goes home if needed. The family is also agreeable to SN if needed. The SNF they prefer is [facility] in [place], if the patient needs care home care.
--- NOTE | 2021-11-18 18:00 | NUR ---
Miss Rios continues to be confused. She was very restless at the start of the shift. She removed her gown several rimes and in the process removed one of her IV access points. She had another in her left hand this one failed at the end of this shift and has been replaced. She starts a new antibiotic related to her positive blood cultures. Bipap will be as needed only and is no longer scheduled at HS. Her family spoke with case management to start to discuss plans for DC. Both of her daughters have visited her today. Blood sugars have been treated with SSI. She presently has no s/s of distress or discomfort and is resting quietly with her daughter at the bedside
--- NOTE | 2021-11-18 19:15 | NUR ---
Handoff has been given to Vin
[2021-11-18 20:35] VITALS: BP_SYST 120
[2021-11-18] MEDS: LINEZOLID 300 ML IV SCH (20:44)
[2021-11-19 01:10] VITALS: BP_SYST 135
[2021-11-19] MEDS: NORMAL SALINE 5 ML DISP.SYRIN IVF SCH ×3 (06:05→21:55)
[2021-11-19] MEDS: INSULIN REGULAR, HUMAN 100 UNITS/ML, 10 ML VIAL (humuLIN R) SUBCUT PRN ×4 (06:11→21:54)
[2021-11-19] MEDS: DILTIAZEM HCL 60 MG TABLET PO SCH ×4 (06:16→23:55)
[2021-11-19] MEDS: FUROSEMIDE 20 MG/2 ML VIAL IVP SCH ×2 (06:22→17:59)
[2021-11-19 07:28] LABS: HEMATOCRIT 31.4 % (36-48); HEMOGLOBIN 10.3 g/dL (12.0-16.0); LYMPHOCYTES # (AUTO) 0.3 K/uL (1.0-5.5); LYMPHOCYTES % (AUTO) 1.7 % (20.5-51.5); MEAN CORPUSCULAR HEMOGLOBIN 30 pg (27-31); MEAN CORPUSCULAR HGB CONC 33 % (32-36); MEAN CORPUSCULAR VOLUME 92 fL (79.0-98.0); MONOCYTES # (AUTO) 0.5 K/uL (0.0-1.0); MONOCYTES % (AUTO) 3.2 % (1.7-9.3); NEUTROPHILS # (AUTO) 14.7 K/uL (1.8-7.7); NEUTROPHILS % (AUTO) 95.1 % (40.0-70.0); PLATELET COUNT (AUTO) 178 K/uL (130-430); RED BLOOD CELL COUNT(AUTO) 3.44 MIL/uL (4.2-6.2); RED CELL DISTRIBUTION WIDTH 13.8 % (9.0-15.0); WHITE BLOOD COUNT (AUTO) 15.4 K/uL (4.8-10.8)
[2021-11-19 08:00] VITALS: BP_SYST 141
[2021-11-19 08:26] LABS: ALANINE AMINOTRANSFERASE 14 U/L (12-78); ALBUMIN 2.5 g/dL (3.4-4.8); ANION GAP 10 (5-15); ASPARTATE AMINOTRANSFERASE 26 U/L (10-37); CHLORIDE 107 mmol/L (98-107); CREATININE 1.49 mg/dL (0.55-1.30); GLUCOSE 288 mg/dL (70-99); PHOSPHORUS 3.3 mg/dL (2.7-4.5); SODIUM SERUM 142 mmol/L (136-145); TOTAL BILIRUBIN 0.3 mg/dL (0.0-1.0); UREA NITROGEN, BLOOD 67 mg/dL (8-21)
[2021-11-19] MEDS: METHYLPREDNISOLONE SOD SUCC 40 MG/ML VIAL IVP SCH (08:31)
[2021-11-19] MEDS: LINEZOLID 300 ML IV SCH ×2 (08:31→21:39)
[2021-11-19] MEDS: APIXABAN 2.5 MG TABLET PO SCH (08:32)
[2021-11-19] MEDS: LOSARTAN POTASSIUM 50 MG TABLET (COZAAR) PO SCH (08:32)
[2021-11-19] MEDS: MEMANTINE HCL 5 MG TABLET PO SCH (08:33)
[2021-11-19] MEDS: LEVOTHYROXINE SODIUM 0.075 MG TABLET PO SCH (08:33)
[2021-11-19 09:24] LABS: C-REACTIVE PROTEIN QUANT 19.2 mg/dL (0-0.5)
[2021-11-19] MEDS: cefTRIAXone 1 GM IVPB PREMIX 50 ML IV SCH (11:45)
[2021-11-19 12:17] LABS: ERYTHROCYTE SEDIMENTATION RATE 62 MM/HR (0-20)
[2021-11-19 12:30] VITALS: BP_SYST 119
[2021-11-19 16:06] VITALS: BP_SYST 121
--- NOTE | 2021-11-19 17:50 | NUR ---
continuation of care report was endorsed by siobhan bond. patient is awake and alert sitting up in bed all safety precautions in place. family is at bedside. patient has call light educated to use for assistance. no other needs at this time.
--- NOTE | 2021-11-19 18:26 | NUR ---
0800: PATIENT IS ASLEEP, AROUSABLE WITH VERBAL STIMULI, ORIENTED X [address], FORGETFUL. RESPIRATION EVEN AND UNLABORED NO S/S OF ANY ACUTE DISTRESS NOTED. ABLE TO VERBALIZE NEEDS NO C/O ANY PAIN OR DISCOMFORT @ THIS TIME. ABDOMEN SOFT AND NON-DISTENDED, POSITIVE BOWEL SOUND X 4 NO N/V OR DIARRHEA NOTED. SKIN WARM AND DRY WITH BLANCHABLE REDNESS COCCYX AND BILATERAL BUTTOCK. NO IV HEPLOCK, WILL ATTEMPTED ESTABLISH ONE FOR IV MEDICATION ORDERED. 1000: IV INSERTED LEFT HAND 22G, FLUSHING WELL WITH GOOD BLOOD RETURN AND ALL DUE IV MEDICATION ADMINISTERED ORDERED, SITE REMAINED PATENT W/O ANY REDNESS OR SWELLING NOTED. WILL CONTINUE TO MONITOR PATIENT. 1100: PATIENT OUT OF BED WITH PT, AMBULATED WITH USE OF FWW, AMBULATED APPROXIMATELY 25 FEET WITH MODERATE ASSISTANCE W/O ANY DIZZINESS OR LIGHTHEADEDNESS NOTED. PATIENT WAS ASSISTED BACK TO BED BY PT @ THE END OF THE SESSION. 1830: PATIENT HAD REMAINED STABLE, STILL WITH PERIOD OF FORGETFULNESS. REPORT GIVEN TO RAQUEL LIMA TO CONTINUE CARE FOR PATIENT. PATIENT WAS TRANSFERRED TO ROOM 120 BECAUSE OF NOISY ROOMMATE.
--- NOTE | 2021-11-19 18:59 | NUR ---
rn closing note Patient is awake and alert sitting up in bed. patient took a few bites of dinner then was not interested in it. patient's daughter is at bedside. patient has all safety precautions in place call light is with her. patient is close to nurses station. no other needs at this time.
[2021-11-19 20:25] VITALS: BP_SYST 129
--- NOTE | 2021-11-19 20:38 | NUR ---
RECEIVED PT LYING IN BED, NO DISTRESS NOTE. DENIES PAIN. ON OXYMIZER AT 6L, O2 SAT 98%. BRUISING NOTED TO RUE AND LLE. DRYNESS NOTED TO LLE, RLE WITH WEAK PULSES AND DECREASED SENSATION. Addendum: 11/20/21 at [address] [facility] Five fabrication supervisor PT IS ANXIOUS STATING SHE WANTS TO GO HOME, REMOVING HER BLANKETS, PUTTING HER LEG OVER THE RAILS. VSS, O2 SAT 95% ATIVAN 1MG GIVEN. WILL CONTINUE TO MONITOR CLOSELY. Addendum: 11/20/21 at 0203 by [facility] fabrication supervisor PT PULLED IV OUT, REINSERTED A 24G TO LT FA, CHANGED INCONTINENT PAD, REPOSITIONED TO RT SIDE
[2021-11-20 00:04] VITALS: BP_SYST 134
[2021-11-20] MEDS: LORazepam 2 MG/ML VIAL IVP PRN (00:04)
[2021-11-20] MEDS: DILTIAZEM HCL 60 MG TABLET PO SCH ×3 (06:13→17:39)
[2021-11-20] MEDS: NORMAL SALINE 5 ML DISP.SYRIN IVF SCH ×3 (06:14→22:05)
[2021-11-20] MEDS: INSULIN REGULAR, HUMAN 100 UNITS/ML, 10 ML VIAL (humuLIN R) SUBCUT PRN ×3 (06:22→22:30)
[2021-11-20] MEDS: FUROSEMIDE 20 MG/2 ML VIAL IVP SCH ×2 (06:40→17:38)
[2021-11-20 07:03] LABS: BASOPHILS % (AUTO) 0.1 % (0.0-2.0); HEMATOCRIT 31.9 % (36-48); HEMOGLOBIN 10.3 g/dL (12.0-16.0); LYMPHOCYTES # (AUTO) 0.2 K/uL (1.0-5.5); LYMPHOCYTES % (AUTO) 1.2 % (20.5-51.5); MEAN CORPUSCULAR HEMOGLOBIN 30 pg (27-31); MEAN CORPUSCULAR HGB CONC 32 % (32-36); MEAN CORPUSCULAR VOLUME 91 fL (79.0-98.0); MONOCYTES # (AUTO) 0.9 K/uL (0.0-1.0); MONOCYTES % (AUTO) 5.7 % (1.7-9.3); NEUTROPHILS # (AUTO) 15.1 K/uL (1.8-7.7); PLATELET COUNT (AUTO) 116 K/uL (130-430); RED BLOOD CELL COUNT(AUTO) 3.51 MIL/uL (4.2-6.2); RED CELL DISTRIBUTION WIDTH 13.6 % (9.0-15.0); WHITE BLOOD COUNT (AUTO) 16.3 K/uL (4.8-10.8)
[2021-11-20 07:25] LABS: ANION GAP 9 (5-15); C-REACTIVE PROTEIN QUANT 9.4 mg/dL (0-0.5); CALCIUM 8.7 mg/dL (8.4-11.0); CHLORIDE 105 mmol/L (98-107); CREATININE 1.53 mg/dL (0.55-1.30); GLUCOSE 241 mg/dL (70-99); PHOSPHORUS 3.1 mg/dL (2.7-4.5); POTASSIUM 4.1 mmol/L (3.5-5.1); SODIUM SERUM 141 mmol/L (136-145); UREA NITROGEN, BLOOD 69 mg/dL (8-21)
[2021-11-20] MEDS: LINEZOLID 300 ML IV SCH ×2 (09:29→22:08)
[2021-11-20] MEDS: METHYLPREDNISOLONE SOD SUCC 40 MG/ML VIAL IVP SCH (09:31)
[2021-11-20] MEDS: MEMANTINE HCL 5 MG TABLET PO SCH (09:45)
[2021-11-20] MEDS: LEVOTHYROXINE SODIUM 0.075 MG TABLET PO SCH (09:45)
[2021-11-20] MEDS: LOSARTAN POTASSIUM 50 MG TABLET (COZAAR) PO SCH (09:45)
[2021-11-20] MEDS: APIXABAN 2.5 MG TABLET PO SCH (09:46)
[2021-11-20] MEDS: cefTRIAXone 1 GM IVPB PREMIX 50 ML IV SCH (09:47)
[2021-11-20 09:56] LABS: ERYTHROCYTE SEDIMENTATION RATE 33 MM/HR (0-20)
--- NOTE | 2021-11-20 10:26 | NUR ---
PRIMARY MD AT BEDSIDE EVAL PT AT THIS TIME
[2021-11-20 12:47] VITALS: BP_SYST 151
[2021-11-20 13:00] VITALS: BP_SYST 151
[2021-11-20 18:10] VITALS: BP_SYST 127
[2021-11-20 23:46] VITALS: BP_SYST 115
[2021-11-21] VITALS (7 sets, daily range): BP systolic 108–144
[2021-11-21] MEDS: DILTIAZEM HCL 60 MG TABLET PO SCH ×4 (00:47→17:08)
[2021-11-21] MEDS: NORMAL SALINE 5 ML DISP.SYRIN IVF SCH ×3 (06:09→21:35)
[2021-11-21 06:41] LABS: BASOPHILS % (AUTO) 0.1 % (0.0-2.0); HEMATOCRIT 30.2 % (36-48); HEMOGLOBIN 9.9 g/dL (12.0-16.0); LYMPHOCYTES # (AUTO) 0.2 K/uL (1.0-5.5); LYMPHOCYTES % (AUTO) 1.4 % (20.5-51.5); MEAN CORPUSCULAR HEMOGLOBIN 30 pg (27-31); MEAN CORPUSCULAR HGB CONC 33 % (32-36); MEAN CORPUSCULAR VOLUME 91 fL (79.0-98.0); MONOCYTES # (AUTO) 1.5 K/uL (0.0-1.0); MONOCYTES % (AUTO) 8.7 % (1.7-9.3); NEUTROPHILS # (AUTO) 15.3 K/uL (1.8-7.7); NEUTROPHILS % (AUTO) 89.8 % (40.0-70.0); PLATELET COUNT (AUTO) 78 K/uL (130-430); RED BLOOD CELL COUNT(AUTO) 3.33 MIL/uL (4.2-6.2); RED CELL DISTRIBUTION WIDTH 13.8 % (9.0-15.0); WHITE BLOOD COUNT (AUTO) 17.1 K/uL (4.8-10.8)
[2021-11-21 06:49] LABS: ANION GAP 10 (5-15); C-REACTIVE PROTEIN QUANT 6.1 mg/dL (0-0.5); CALCIUM 8.6 mg/dL (8.4-11.0); CHLORIDE 105 mmol/L (98-107); CREATININE 1.61 mg/dL (0.55-1.30); GLUCOSE 229 mg/dL (70-99); PHOSPHORUS 3.7 mg/dL (2.7-4.5); POTASSIUM 4.5 mmol/L (3.5-5.1); SODIUM SERUM 143 mmol/L (136-145); UREA NITROGEN, BLOOD 75 mg/dL (8-21)
--- NOTE | 2021-11-21 08:23 | NUR ---
RECEIVED PT IN THE AM PT STABLE VSS, NC 02 SATY 96%, ALL SAFETY MEASURES IN USE WITH CALL LIGHT AT HAND NO S/S OF PAIN NOTED, D/C PLAN TO CL[facility] PER MD, FAMILY MADE AWARE
[2021-11-21] MEDS: ALBUTEROL SULFATE 0.083% 2.5 MG/3 ML VIAL.NEB INH PRN (09:00)
[2021-11-21] MEDS: IPRATROPIUM BROM 0.5 MG/2.5 ML VIAL.NEB (ATROVENT) INH PRN (09:01)
--- NOTE | 2021-11-21 10:00 | NUR ---
CARDIO MD AT BEDSIDE EVAL PT AT THIS TIME, ORDER FOR ABG
[2021-11-21] MEDS: METHYLPREDNISOLONE SOD SUCC 40 MG/ML VIAL IVP SCH (10:08)
[2021-11-21] MEDS: LINEZOLID 300 ML IV SCH ×2 (10:08→21:27)
[2021-11-21] MEDS: LEVOTHYROXINE SODIUM 0.075 MG TABLET PO SCH (10:09)
[2021-11-21] MEDS: LOSARTAN POTASSIUM 50 MG TABLET (COZAAR) PO SCH (10:09)
[2021-11-21] MEDS: MEMANTINE HCL 5 MG TABLET PO SCH (10:09)
[2021-11-21] MEDS: APIXABAN 2.5 MG TABLET PO SCH (10:12)
[2021-11-21 10:53] LABS: ERYTHROCYTE SEDIMENTATION RATE 16 MM/HR (0-20)
--- NOTE | 2021-11-21 12:00 | NUR ---
PT HAS ORDERS FOR CT SCAN OF THE CHEST FAMILY MADE AWARE AND AT BEDSIDE.
[2021-11-21] MEDS: INSULIN REGULAR, HUMAN 100 UNITS/ML, 10 ML VIAL (humuLIN R) SUBCUT PRN ×3 (13:00→21:39)
[2021-11-21] MEDS: cefTRIAXone 1 GM IVPB PREMIX 50 ML IV SCH (17:03)
--- NOTE | 2021-11-21 18:39 | NUR ---
PT LETHARGIC BUT AROUSABLE NOTIFIED NO S/S OF STROKE NOTED AT THIS TIME, MD NOTIFIED,
[2021-11-22 00:18] VITALS: BP_SYST 137
[2021-11-22] MEDS: DILTIAZEM HCL 60 MG TABLET PO SCH ×4 (00:44→17:29)
[2021-11-22] MEDS: ALBUTEROL SULFATE 0.083% 2.5 MG/3 ML VIAL.NEB INH PRN (05:44)
[2021-11-22] MEDS: IPRATROPIUM BROM 0.5 MG/2.5 ML VIAL.NEB (ATROVENT) INH PRN (05:44)
--- NOTE | 2021-11-22 06:04 | NUR ---
Patient lethargic but arousable. Increased rhonchi/crackles this morning compared to earlier in the shift. Placed on BiPAP by RT. Call light in reach. Fall, safety, and aspiration precautions in place.
[2021-11-22 06:30] LABS: HEMATOCRIT 32.3 % (36-48); HEMOGLOBIN 10.6 g/dL (12.0-16.0); LYMPHOCYTES # (AUTO) 0.7 K/uL (1.0-5.5); LYMPHOCYTES % (AUTO) 3.6 % (20.5-51.5); MEAN CORPUSCULAR HEMOGLOBIN 30 pg (27-31); MEAN CORPUSCULAR HGB CONC 33 % (32-36); MEAN CORPUSCULAR VOLUME 92 fL (79.0-98.0); MONOCYTES # (AUTO) 1.6 K/uL (0.0-1.0); NEUTROPHILS # (AUTO) 18.2 K/uL (1.8-7.7); NEUTROPHILS % (AUTO) 88.4 % (40.0-70.0); PLATELET COUNT (AUTO) 50 K/uL (130-430); RED BLOOD CELL COUNT(AUTO) 3.53 MIL/uL (4.2-6.2); RED CELL DISTRIBUTION WIDTH 14.3 % (9.0-15.0); WHITE BLOOD COUNT (AUTO) 20.6 K/uL (4.8-10.8)
[2021-11-22] MEDS: NORMAL SALINE 5 ML DISP.SYRIN IVF SCH ×3 (06:51→22:17)
[2021-11-22] MEDS: INSULIN REGULAR, HUMAN 100 UNITS/ML, 10 ML VIAL (humuLIN R) SUBCUT PRN ×4 (06:54→22:20)
[2021-11-22 06:56] LABS: ALANINE AMINOTRANSFERASE 20 U/L (12-78); ALBUMIN 2.9 g/dL (3.4-4.8); ANION GAP 9 (5-15); ASPARTATE AMINOTRANSFERASE 29 U/L (10-37); CALCIUM 8.4 mg/dL (8.4-11.0); CHLORIDE 107 mmol/L (98-107); CREATININE 1.65 mg/dL (0.55-1.30); GLUCOSE 264 mg/dL (70-99); POTASSIUM 4.5 mmol/L (3.5-5.1); SODIUM SERUM 143 mmol/L (136-145); TOTAL BILIRUBIN 0.7 mg/dL (0.0-1.0); UREA NITROGEN, BLOOD 77 mg/dL (8-21)
--- NOTE | 2021-11-22 07:15 | NUR ---
RN OPENING NOTE REPORT WAS ENDORSED BY NIGHT NURSE. PATIENT IS AWAKE AND ALERT WITH CONFUSION. PATIENT IS ON bIPAP. PATIENT HAS ALL SAFETY PRECAUTIONS IN PLACE. PATIENT HAS CALL LIGHT WITH HER ATTEMPTED TO EDUCATE BUT IS CONFUSED. PATIENT HAS NO OTHER NEEDS AT THIS TIME. NO SIGNS OF ANY DISTRESS.
[2021-11-22 07:56] LABS: C-REACTIVE PROTEIN QUANT 5.5 mg/dL (0-0.5)
[2021-11-22 08:02] VITALS: BP_SYST 101
--- NOTE | 2021-11-22 08:02 | NUR ---
0730 PT TAKEN OFF BIPAP AND PLACED ON 4L OXYMIZER. SAT 94% hr 96. rr 18. will cont to monitor. Addendum: 11/22/21 at 0804 by Rosi Wilkinson RT Amended: Links added.
[2021-11-22] MEDS: MEMANTINE HCL 5 MG TABLET PO SCH (08:23)
[2021-11-22] MEDS: LEVOTHYROXINE SODIUM 0.075 MG TABLET PO SCH (08:23)
[2021-11-22] MEDS: LOSARTAN POTASSIUM 50 MG TABLET (COZAAR) PO SCH (08:23)
[2021-11-22] MEDS: APIXABAN 2.5 MG TABLET PO SCH (08:25)
[2021-11-22] MEDS: METHYLPREDNISOLONE SOD SUCC 40 MG/ML VIAL IVP SCH (08:26)
[2021-11-22] MEDS: LINEZOLID 300 ML IV SCH (08:26)
--- NOTE | 2021-11-22 08:31 | NUR ---
MEDICATION PATIENTS SCHEDULED MEDICATION GIVEN PER ORDER. TOLERATED WELL. PATIENT IS SITTING UP IN BED. PATIENT IS AWAKE BUT VERY CONFUSED ASKING TO GO HOME WITH HER PARENTS DOES NOT KNOW WHERE SHE IS AT. ATTEMPTED TO REORIENT BUT IS STILL CONFUSED. PATIENT IS TOLERATING OXYMIZER WELL AT 4L SPO2 97%. ATTEMPTED TO EDUCATED FINANCIAL ADMINISTRATIVE ASSISTANT LIGHT, CALL LIGHT IS WITH HER BUT PATIENT IS CONFUSED. PATIENT IS CLOSE TO NURSES STATION. NO SIGNS OF ANY DISTRESS.
--- NOTE | 2021-11-22 10:30 | NUR ---
RN ROUNDING PATIENT IS AWAKE AND ALERT WITH CONFUSION SITTING UP IN BED NO SIGNS OF ANY DISTRESS, BREATHING IS EQUAL AND NON LABORED. PATIENT IS ON OXYMIZER TOLERATING WELL. CLOSE TO NURSES STATION NO OTHER NEEDS AT THIS TIME.
[2021-11-22 12:16] LABS: ERYTHROCYTE SEDIMENTATION RATE 8 MM/HR (0-20)
[2021-11-22 12:25] VITALS: BP_SYST 139
--- NOTE | 2021-11-22 12:28 | NUR ---
MEDICATION PATIENTS SCHEDULED MEDICATION GIVEN PER ORDER. PATIENT IS AWAKE AND ALERT SITTING UP IN A CHAIR AT BEDSIDE. EATING HER LUNCH. INSULIN COVERAGE ALSO GIVEN . DAUGHTER IS AT BEDSIDE. PATIENT AND FAMILY EDUCATED RAILROAD MECHANIC LIGHT FOR ASSISTANCE. CALL LIGHT IS WITH HER NO OTHER NEEDS AT THIS TIME.
[2021-11-22] MEDS: MEROPENEM 500 MG in NS 50 ML IV SCH ×2 (14:26→22:17)
--- NOTE | 2021-11-22 14:30 | NUR ---
RN OPENING NOTE PATIENT APPEARS TO BE RESTING. NO SIGNS OF ANY DISTRESS, BREATHING IS EQUAL AND NON LABORED. ALL SAFETY PRECAUTIONS IN PLACE.
[2021-11-22 16:00] VITALS: BP_SYST 129
--- NOTE | 2021-11-22 17:30 | NUR ---
MEDICATION/INCONTINENCE CARE PATIENTS SCHEDULED MEDICATION GIVEN PER ORDER. PATIENT TOLERATED WELL. PATIENT PROVIDED WITH INCONTINENCE CARE, PATIENTS DAUGHTER IS AT BEDSIDE. EDUCATED DECKHAND SPONGE BOAT LIGHT, CALL LIGHT IS WITH HER. NO OTHER NEEDS AT THIS TIME.
--- NOTE | 2021-11-22 18:21 | NUR ---
RN CLOSING NOTE SWALLOW EVAL WAS DONE RECOMMENDS PUREED DIET WITH THIN LIQUIDS.PATIENTS FAMILY IS AT BEDSIDE. PATIENT IS AWAKE AND ALERT SITTING UP IN BED WITH CONFUSION. PATIENT EDUCATED TO USE CALL LIGHT FOR ASSISTANCE,CALL LIGHT IS WITH HER. CLOSE TO NURSES STATION. NO OTHER NEEDS AT THIS TIME.
--- NOTE | 2021-11-22 18:39 | NUR ---
PT WAS SEEN FOR DYSPHAGIA. PT WAS ABLE TO SAFELY SWALLOW PUREE DIET WITH THIN LIQUID. HOWEVER, PT DEMONSTRATED DIFFICULTY WITH MASTICATION SKILLS. RECOMMENDATION PUREE DIET WITH THIN LIQUID
--- NOTE | 2021-11-22 19:07 | NUR ---
RN CLOSING NOTE PATIENT IS AWAKE AND TALKING WITH DAUGHTER. PATIENT IS STILL CONFUSED. CALL LIGHT IS WITH HER, EDUCATED TO USE FOR ASSISTANCE. PATIENT IS CLOSE TO NURSES STATION. NO SIGNS OF DISTRESS. NO COMPLAINTS OF PAIN AT THIS TIME.
[2021-11-22 21:00] VITALS: BP_SYST 135
--- NOTE | 2021-11-22 21:25 | NUR ---
FAMILY @ THE BEDSIDE assist patient with ordered po DIET PUREE HOB kept elevated tolerating assist needed / .
[2021-11-23] MEDS: DILTIAZEM HCL 60 MG TABLET PO SCH ×4 (00:41→17:25)
[2021-11-23 01:00] VITALS: BP_SYST 138
--- NOTE | 2021-11-23 01:44 | NUR ---
SAFETY measures implemented frequent monitor patient pulls off 02 Re apply as needed bed alarm is on / .
[2021-11-23] MEDS: MEROPENEM 500 MG in NS 50 ML IV SCH ×3 (05:55→21:18)
[2021-11-23] MEDS: INSULIN REGULAR, HUMAN 100 UNITS/ML, 10 ML VIAL (humuLIN R) SUBCUT PRN ×4 (05:55→20:43)
[2021-11-23] MEDS: NORMAL SALINE 5 ML DISP.SYRIN IVF SCH ×3 (05:56→21:19)
[2021-11-23 06:32] LABS: BASOPHILS % (AUTO) 0.1 % (0.0-2.0); HEMATOCRIT 30.1 % (36-48); HEMOGLOBIN 9.8 g/dL (12.0-16.0); LYMPHOCYTES # (AUTO) 0.3 K/uL (1.0-5.5); LYMPHOCYTES % (AUTO) 1.5 % (20.5-51.5); MEAN CORPUSCULAR HEMOGLOBIN 30 pg (27-31); MEAN CORPUSCULAR HGB CONC 32 % (32-36); MEAN CORPUSCULAR VOLUME 92 fL (79.0-98.0); MONOCYTES # (AUTO) 1.3 K/uL (0.0-1.0); MONOCYTES % (AUTO) 6.4 % (1.7-9.3); NEUTROPHILS # (AUTO) 18.4 K/uL (1.8-7.7); RED BLOOD CELL COUNT(AUTO) 3.28 MIL/uL (4.2-6.2); RED CELL DISTRIBUTION WIDTH 14.1 % (9.0-15.0)
[2021-11-23 07:36] LABS: ANION GAP 16 (5-15); CHLORIDE 103 mmol/L (98-107); CREATININE 1.54 mg/dL (0.55-1.30); GLUCOSE 337 mg/dL (70-99); POTASSIUM 4.8 mmol/L (3.5-5.1); SODIUM SERUM 142 mmol/L (136-145); UREA NITROGEN, BLOOD 72 mg/dL (8-21)
[2021-11-23 07:51] LABS: C-REACTIVE PROTEIN QUANT 6.3 mg/dL (0-0.5)
[2021-11-23 08:00] VITALS: BP_SYST 134
--- NOTE | 2021-11-23 08:00 | NUR ---
Initial Notes Patient aroused when name called, confused, and a bit lethargic. VS obtained. Patient is Oxymizer on 4L. SPo2 at 96%. No SOB, breathing in non labored and even. No pain or distress noted. Positioned patient in [place] to eat breakfast. Safety precautions in place and call light within reach.
[2021-11-23 08:11] LABS: ERYTHROCYTE SEDIMENTATION RATE 13 MM/HR (0-20)
[2021-11-23 08:13] LABS: PLATELET COUNT (AUTO) 35 K/uL (130-430)
--- NOTE | 2021-11-23 08:45 | NUR ---
Critical Lab- Platelets. Spoke to Dr. Duncan Ni. Per MD order, hold Eliquis. Ordered physician consult- Dr. Orantes.
[2021-11-23] MEDS: LOSARTAN POTASSIUM 50 MG TABLET (COZAAR) PO SCH (08:55)
[2021-11-23] MEDS: LEVOTHYROXINE SODIUM 0.075 MG TABLET PO SCH (08:55)
[2021-11-23] MEDS: MEMANTINE HCL 5 MG TABLET PO SCH (08:55)
[2021-11-23] MEDS: METHYLPREDNISOLONE SOD SUCC 40 MG/ML VIAL IVP SCH (08:57)
[2021-11-23] MEDS: APIXABAN 2.5 MG TABLET PO SCH (09:00)
--- NOTE | 2021-11-23 10:07 | NUR ---
CONSULTATION PAGED REASON FOR CONSULTATION:low platelets WAS CONSULT CALLED?y PERSON WHO WAS NOTIFIED:DAVID CONSULTING PHYSICIAN:THERESE SMITH ALAA ICER MACHINE OPERATOR SPECIALTY:-HEMATOLOGY,BEHAVIORAL HEALTH AIDE PHONE NUMBER:[phone] REQUESTING PHYSICIAN:;,KRISTI
[2021-11-23 10:21] VITALS: BP_SYST 134
[2021-11-23 12:00] VITALS: BP_SYST 145
[2021-11-23] MEDS: FLUCONAZOLE 100 mg/ NS 50 ML IV SCH (12:16)
--- NOTE | 2021-11-23 12:30 | NUR ---
NOTES MIDLINE WAS PLACE IN [place].
--- NOTE | 2021-11-23 12:37 | NUR ---
Dietitian Recommendations * Continue w/ Petra, DAMIO diet, Andrew CASTRO * Encourage PO intake Please refer to Nutrition Assessment for details. Addendum: 11/23/21 at [address] Amended: Links added.
[2021-11-23 16:00] VITALS: BP_SYST 135
--- NOTE | 2021-11-23 16:30 | NUR ---
Notes Patient is awake, and has been repositioned. No complaints of pain. Patient is still on Oxymizer @4L. SPo2 at 96%. HOB elevated. Family is at bedside. Patient is eating. Safety precautions in place and call light within reach.
--- NOTE | 2021-11-23 18:19 | NUR ---
Closing Notes Patient is resting. No change in assessment. Family is at bedside. Safety precautions in place, call light within reach.
[2021-11-23 20:00] VITALS: BP_SYST 120
[2021-11-24] VITALS: BP_SYST 118
[2021-11-24] MEDS: DILTIAZEM HCL 60 MG TABLET PO SCH ×4 (00:08→18:55)
[2021-11-24 04:00] VITALS: BP_SYST 120
[2021-11-24] MEDS: MEROPENEM 500 MG in NS 50 ML IV SCH ×3 (05:20→21:01)
[2021-11-24] MEDS: NORMAL SALINE 5 ML DISP.SYRIN IVF SCH ×3 (05:21→21:01)
--- NOTE | 2021-11-24 06:04 | NUR ---
0600 Patient remains on bed rest. Slept well. AAOx3. Confused. On oxymiser tolerated well with mild tachypnea. Midline to [place] intact and patent. Voiding well. No stool. Tolerated medications well. No ADR noted. Repositioned to sides q2 hours. Kept warm and comfortable. All needs attended. Call light placed within reach. Monitored closely.
[2021-11-24] MEDS: INSULIN REGULAR, HUMAN 100 UNITS/ML, 10 ML VIAL (humuLIN R) SUBCUT PRN ×4 (06:33→21:07)
[2021-11-24 06:53] LABS: BASOPHILS % (AUTO) 0.1 % (0.0-2.0); HEMATOCRIT 29.5 % (36-48); HEMOGLOBIN 9.8 g/dL (12.0-16.0); LYMPHOCYTES # (AUTO) 0.4 K/uL (1.0-5.5); LYMPHOCYTES % (AUTO) 2.6 % (20.5-51.5); MEAN CORPUSCULAR HEMOGLOBIN 30 pg (27-31); MEAN CORPUSCULAR HGB CONC 33 % (32-36); MEAN CORPUSCULAR VOLUME 91 fL (79.0-98.0); MONOCYTES % (AUTO) 6.9 % (1.7-9.3); NEUTROPHILS # (AUTO) 13.2 K/uL (1.8-7.7); NEUTROPHILS % (AUTO) 90.4 % (40.0-70.0); RED BLOOD CELL COUNT(AUTO) 3.26 MIL/uL (4.2-6.2); RED CELL DISTRIBUTION WIDTH 14.1 % (9.0-15.0); RETICULOCYTE COUNT 2.4 % (0.5-1.5); WHITE BLOOD COUNT (AUTO) 14.6 K/uL (4.8-10.8)
[2021-11-24 07:08] LABS: ANION GAP 9 (5-15); CALCIUM 8.4 mg/dL (8.4-11.0); CHLORIDE 109 mmol/L (98-107); GLUCOSE 234 mg/dL (70-99); POTASSIUM 5.1 mmol/L (3.5-5.1); SODIUM SERUM 146 mmol/L (136-145); UREA NITROGEN, BLOOD 77 mg/dL (8-21)
[2021-11-24 08:00] VITALS: BP_SYST 132; BP_SYST 156
--- NOTE | 2021-11-24 08:00 | NUR ---
Initial Notes Patient awake, confused. Cleaned and repositioned pt. Wound care done and pictures taken. Patient is on 4L via Oxymizer. Breathing is even and unlabored. No respiratory distress noted. Pt denies any pain. Patient is now eating breakfast, HOB elevated. Safety precautions in place and call light within reach.
[2021-11-24 08:06] LABS: INR 1.3 (0.8-1.2); PROTHROMBIN TIME 12.7 SECS (9.5-12.5)
[2021-11-24 08:14] LABS: C-REACTIVE PROTEIN QUANT 4.2 mg/dL (0-0.5)
[2021-11-24] MEDS: IPRATROPIUM BROM 0.5 MG/2.5 ML VIAL.NEB (ATROVENT) INH PRN (08:24)
[2021-11-24] MEDS: ALBUTEROL SULFATE 0.083% 2.5 MG/3 ML VIAL.NEB INH PRN (08:24)
[2021-11-24 08:28] LABS: PLATELET COUNT (AUTO) 31 K/uL (130-430)
[2021-11-24 08:52] LABS: ERYTHROCYTE SEDIMENTATION RATE 9 MM/HR (0-20)
[2021-11-24] MEDS: APIXABAN 2.5 MG TABLET PO SCH (09:00)
--- NOTE | 2021-11-24 09:00 | NUR ---
Called and spoke to Dr. Doss, critical lab- platelets 31. Per MD continue to hold Eliquis. No further action required.
[2021-11-24 09:10] LABS: TOTAL IRON BIND. CAPACITY 211 ug/dL (250-450)
--- NOTE | 2021-11-24 09:11 | NUR ---
Initial Notes Patient awake, confused. Cleaned and repositioned pt. Wound care done and pictures taken. Patient is on 4L via Oxymizer. Breathing is even and unlabored. No respiratory distress noted. Pt denies any pain. Patient is now eating breakfast, HOB elevated. Safety precautions in place and call light within reach. Addendum: 11/24/21 at 1246 by Radha Ledezma LVN incorrect time
[2021-11-24] MEDS: METHYLPREDNISOLONE SOD SUCC 40 MG/ML VIAL IVP SCH (09:33)
[2021-11-24] MEDS: MEMANTINE HCL 5 MG TABLET PO SCH (09:33)
[2021-11-24] MEDS: LEVOTHYROXINE SODIUM 0.075 MG TABLET PO SCH (09:33)
[2021-11-24] MEDS: LOSARTAN POTASSIUM 50 MG TABLET (COZAAR) PO SCH (09:34)
[2021-11-24] MEDS ORDERED: DILT60TA3 PO (11:21)
[2021-11-24] MEDS ORDERED: PRED20TA PO (11:21)
[2021-11-24] MEDS ORDERED: MERO500V23 IV (11:21)
[2021-11-24] MEDS ORDERED: DIF100 PO (11:21)
[2021-11-24] MEDS: FLUCONAZOLE 100 mg/ NS 50 ML IV SCH (11:39)
--- NOTE | 2021-11-24 12:00 | NUR ---
Notes Patient has eyes closed, aroused when spoken to. HOB elevated. Spo2 @ 94-95%. No SOB or respiratory distress noted. No facial grimace noted. Family at bedside. Safety precautions in place, bed alarm on.
[2021-11-24 12:14] VITALS: BP_SYST 119
--- NOTE | 2021-11-24 12:58 | NUR ---
Discharge Planning: DCP faxed pt referral to [facility] F#[phone] P#[phone] DCP to follow up Addendum: 11/24/21 at 1617 by Judi REAL Per Shannan patient is accepted clinically [facility] P#[phone]. Shannan will call family to clarify why so far from home. No room given.
[2021-11-24 16:09] VITALS: BP_SYST 132
--- NOTE | 2021-11-24 18:42 | NUR ---
CLOSING NOTES PATIENT IS RESTING, EYES CLOSED. NO S/S OF DISTRESS OR PAIN NOTED. PT ON OXYMIZER AT 4L. SPO2 AT 95%. SAFETY PRECAUTIONS IN PLACE AND CALL LIGHT WITHIN REACH.
--- NOTE | 2021-11-24 19:30 | NUR ---
OPENING NOTES: Patient received from Am shift nurse. Patient is unable to communicate needs no s/s of distress is noted and patient has family at bedside. Patient is on oxymiser 4L via NC and tolerating it well, chest rise is even and unlabored. Patient is on Tele monitoring. Patient is stable at this time, safety measures are in place per protocol will resume care and monitor throughout the shift.
[2021-11-24 20:00] VITALS: BP_SYST 132
[2021-11-25 00:55] VITALS: BP_SYST 137
[2021-11-25] MEDS: DILTIAZEM HCL 60 MG TABLET PO SCH ×5 (05:58→23:33)
[2021-11-25] MEDS: NORMAL SALINE 5 ML DISP.SYRIN IVF SCH ×3 (05:59→21:11)
[2021-11-25] MEDS: INSULIN REGULAR, HUMAN 100 UNITS/ML, 10 ML VIAL (humuLIN R) SUBCUT PRN ×4 (06:06→21:17)
[2021-11-25] MEDS: MEROPENEM 500 MG in NS 50 ML IV SCH ×3 (06:08→21:11)
[2021-11-25 06:55] LABS: ANION GAP 8 (5-15); CALCIUM 8.6 mg/dL (8.4-11.0); CHLORIDE 111 mmol/L (98-107); CREATININE 1.33 mg/dL (0.55-1.30); GLUCOSE 223 mg/dL (70-99); PHOSPHORUS 3.6 mg/dL (2.7-4.5); POTASSIUM 4.8 mmol/L (3.5-5.1); SODIUM SERUM 149 mmol/L (136-145); UREA NITROGEN, BLOOD 73 mg/dL (8-21)
--- NOTE | 2021-11-25 07:33 | NUR ---
CLOSING NOTES: Patient is in bed resting no s/s of distress at this time. Chest rise is even and unlabored and patient is on Oxymiser on 4L patient is tolerating it well. All current shift needs have been met and patient is stable at this time. Safety protocols are in place and patient has call light within reach. Will differ current care to AM shift nurse for continuity of care.
[2021-11-25 08:05] VITALS: BP_SYST 143
[2021-11-25 08:06] LABS: FOLATE (FOLIC ACID) >20.0 ng/mL (>3.0)
[2021-11-25 08:27] LABS: C-REACTIVE PROTEIN QUANT 3.6 mg/dL (0-0.5)
[2021-11-25] MEDS: APIXABAN 2.5 MG TABLET PO SCH (08:45)
[2021-11-25] MEDS: METHYLPREDNISOLONE SOD SUCC 40 MG/ML VIAL IVP SCH (08:55)
[2021-11-25] MEDS: LEVOTHYROXINE SODIUM 0.075 MG TABLET PO SCH (08:56)
[2021-11-25] MEDS: MEMANTINE HCL 5 MG TABLET PO SCH (08:56)
[2021-11-25] MEDS: LOSARTAN POTASSIUM 50 MG TABLET (COZAAR) PO SCH (08:57)
[2021-11-25 09:02] LABS: BASOPHILS % (AUTO) 0.1 % (0.0-2.0); HEMATOCRIT 30.5 % (36-48); HEMOGLOBIN 9.9 g/dL (12.0-16.0); LYMPHOCYTES # (AUTO) 0.3 K/uL (1.0-5.5); LYMPHOCYTES % (AUTO) 2.1 % (20.5-51.5); MEAN CORPUSCULAR HEMOGLOBIN 30 pg (27-31); MEAN CORPUSCULAR HGB CONC 32 % (32-36); MEAN CORPUSCULAR VOLUME 92 fL (79.0-98.0); MONOCYTES # (AUTO) 1.3 K/uL (0.0-1.0); MONOCYTES % (AUTO) 8.4 % (1.7-9.3); NEUTROPHILS # (AUTO) 14.3 K/uL (1.8-7.7); NEUTROPHILS % (AUTO) 89.4 % (40.0-70.0); RED CELL DISTRIBUTION WIDTH 14.4 % (9.0-15.0)
[2021-11-25 09:15] LABS: FERRITIN 383 ng/mL (15-150)
[2021-11-25 09:23] LABS: PLATELET COUNT (AUTO) 30 K/uL (130-430)
--- NOTE | 2021-11-25 09:46 | NUR ---
ONCO/DANUTA MD DR SALEH WAS CALLED, RE: CRITICAL PLATELET LEVEL. LEFT A VOICE MESSAGE INSTRUCTED.
--- NOTE | 2021-11-25 11:08 | NUR ---
Discharge Planning: DCP arranged transport with [facility] [phone] BLS 5:00pm [facility] P#[phone] Rm 29. DCP made nurse and CM made aware. Pending medication to PO.
--- NOTE | 2021-11-25 11:13 | NUR ---
ANOTHER CALL FOR ONCO/DANUTA DR SALEH WAS CALLED, RE: CRITICAL PLATELET LEVEL. SPOKE TO HIS OFFICE SEC.
[2021-11-25] MEDS: FLUCONAZOLE 100 mg/ NS 50 ML IV SCH (11:26)
[2021-11-25 11:27] LABS: ERYTHROCYTE SEDIMENTATION RATE 7 MM/HR (0-20)
--- NOTE | 2021-11-25 11:29 | NUR ---
CONSULTATION PAGED/CALLED Reason for Consultation: [] STOOL OB POSITIVE Person Who was Notified: [] DOMINGUEZ Consulting Physician: [] DR TALAMANTES Reconciling Clerk Specialty: [] GI Ordering Physician: [] DR Duncan SANDERS
[2021-11-25 12:00] VITALS: BP_SYST 153
--- NOTE | 2021-11-25 13:54 | NUR ---
CM: SPOKE WITH DR. SALEH REGARDING DCP FOR PATIENT TO SNF, STATED HE IS UNABLE TO CLEAR THE PT TODAY, BECAUSE PLT COUNT IS TOO LOW 30,000, WANTS TO CONT' TO MONITOR FOR TREND .
--- NOTE | 2021-11-25 15:40 | NUR ---
Wound Evaluation: Wound Consult ordered for Low Tyrese Score. Patient evaluated for a low Tyrese score of 13. Patient was awake, alert, confused, and received in a [place] Bed with an Isoflex JOSIAS mattress with low air loss therapy initiated. Patient needs to be turned in bed. Skin assessment: 1. Sacral/Buttocks areas: Scar tissue with blanchable red erythema ands multiple small scabs, present on admission. Site now has scar tissue with blanchable red erythema. No odor, no drainage. Recommend: Cleanse involved area with mild soap and water. Pat dry. Apply moisture barrier cream to involved area. Perform site care 4 times daily and as needed for soiling. Recommend reposition patient side to side only every 2 hours with pillow support. Elevate, off-load and float bilateral heels with pillows. Offload pressure areas with pillows for pressure re-distribution. Perform skin care and monitor skin integrity Q shift. Use moisture barrier cream on moisture susceptible areas QID and PRN for soiling. Maintain patient on low air-loss therapy.
[2021-11-25 16:21] VITALS: BP_SYST 149
[2021-11-25] MEDS ORDERED: D5W 1,000 ML IV SCH (17:00)
--- NOTE | 2021-11-25 19:15 | NUR ---
OPENING NOTES Patient resting in bed - no s/s pain or distress noted. Respirations even and unlabored - head of bed elevated. IV site patent - no s/ s redness infection or infiltration. Bed locked and in lowest position. Call light within reach - bed alarm on.
[2021-11-25 20:00] VITALS: BP_SYST 157
[2021-11-25] MEDS: INSULIN GLARGINE 100 UNITS/ML 10 ML VIAL SUBCUT SCH (21:19)
--- NOTE | 2021-11-25 22:02 | NUR ---
NOTIFIED DR. SANDERS REGARDING BLOOD SUGAR 406 Orders additional 5u lantus subq
[2021-11-25] MEDS ORDERED: INSULIN GLARGINE 100 UNITS/ML 10 ML VIAL SUBCUT ONE (22:15)
--- NOTE | 2021-11-26 | NUR ---
kept npo at this time for EGD - will call for consent in morning
[2021-11-26 00:42] VITALS: BP_SYST 146
--- NOTE | 2021-11-26 05:38 | NUR ---
CALLED LEIDA WILEY [phone] FOR PHONE CONSENT FOR EGD STATES DOCTOR DID NOT TALK OR EDUCATE HER ABOUT PROCEDURE NOTIFIED HER DOCTOR WILL TALK TO HER BEFORE PROCEDURE CAN BEGIN TO ANSWER QUESTIONS WILL NOTIFY DR. TALAMANTES WHO ORDERED PROCEDURE SOON POSSIBLE
[2021-11-26] MEDS: MEROPENEM 500 MG in NS 50 ML IV SCH ×3 (07:01→21:31)
[2021-11-26] MEDS: DILTIAZEM HCL 60 MG TABLET PO SCH ×3 (07:04→17:30)
[2021-11-26] MEDS ORDERED: fentaNYL CITRATE/PF 100 MCG/2 ML AMP ONE (07:04)
[2021-11-26] MEDS ORDERED: MIDAZOLAM HCL 5 MG/5 ML VIAL ONE (07:04)
[2021-11-26] MEDS: NORMAL SALINE 5 ML DISP.SYRIN IVF SCH ×3 (07:05→21:36)
[2021-11-26] MEDS: INSULIN REGULAR, HUMAN 100 UNITS/ML, 10 ML VIAL (humuLIN R) SUBCUT PRN ×3 (07:10→21:48)
--- NOTE | 2021-11-26 07:30 | NUR ---
CLOSING NOTES Patient resting in bed - no s/s pain or distress noted. Respirations even and unlabored - head of bed elevated. IV site patent - no s/ s redness infection or infiltration. Bed locked and in lowest position. Call light within reach - bed alarm on. Will endorse to dayshift about EGD situation. Was unable to call doctor due to BUSY LAST HOUR OF SHIFT.
[2021-11-26 08:00] VITALS: BP_SYST 148
--- NOTE | 2021-11-26 08:00 | NUR ---
Opening Notes Patient is awake, alert and oriented x2. Oriented to name, and allergies. Mild resp distress noted, intermittent wheezing. Breathing is even and unlabored RA. Pt denies any pain at this time. Pt remains NPO d/t scheduled EGD this morning. MIDLINE noted on DELGADO, double lumen, C/D/I. D5W @ 65 ml/ht, infusing well. Pt remains on bedrest at this time. No c/p abnormal bleeding at this time. All needs met at this time. Safety and fall precautions in place. Bed in lowest position, alarm on, locked. Will continue to monitor.
[2021-11-26 08:40] LABS: BASOPHILS % (AUTO) 0.1 % (0.0-2.0); HEMATOCRIT 28.8 % (36-48); HEMOGLOBIN 9.3 g/dL (12.0-16.0); LYMPHOCYTES # (AUTO) 0.4 K/uL (1.0-5.5); LYMPHOCYTES % (AUTO) 2.1 % (20.5-51.5); MEAN CORPUSCULAR HEMOGLOBIN 30 pg (27-31); MEAN CORPUSCULAR HGB CONC 32 % (32-36); MEAN CORPUSCULAR VOLUME 92 fL (79.0-98.0); MONOCYTES # (AUTO) 1.5 K/uL (0.0-1.0); MONOCYTES % (AUTO) 7.9 % (1.7-9.3); NEUTROPHILS # (AUTO) 16.8 K/uL (1.8-7.7); RED BLOOD CELL COUNT(AUTO) 3.15 MIL/uL (4.2-6.2); RED CELL DISTRIBUTION WIDTH 14.3 % (9.0-15.0); WHITE BLOOD COUNT (AUTO) 18.7 K/uL (4.8-10.8)
[2021-11-26 08:55] LABS: ALANINE AMINOTRANSFERASE 33 U/L (12-78); ALBUMIN 2.6 g/dL (3.4-4.8); ANION GAP 7 (5-15); ASPARTATE AMINOTRANSFERASE 25 U/L (10-37); CALCIUM 8.7 mg/dL (8.4-11.0); CHLORIDE 109 mmol/L (98-107); CREATININE 1.09 mg/dL (0.55-1.30); GLUCOSE 236 mg/dL (70-99); PHOSPHORUS 2.8 mg/dL (2.7-4.5); POTASSIUM 4.8 mmol/L (3.5-5.1); SODIUM SERUM 145 mmol/L (136-145); TOTAL BILIRUBIN 0.5 mg/dL (0.0-1.0); UREA NITROGEN, BLOOD 62 mg/dL (8-21)
[2021-11-26] MEDS: APIXABAN 2.5 MG TABLET PO SCH (09:00)
[2021-11-26] MEDS: LEVOTHYROXINE SODIUM 0.075 MG TABLET PO SCH (09:00)
[2021-11-26 10:05] LABS: C-REACTIVE PROTEIN QUANT 2.2 mg/dL (0-0.5)
[2021-11-26 10:26] VITALS: BP_SYST 146
[2021-11-26 10:59] LABS: PLATELET COUNT (AUTO) 26 K/uL (130-430)
[2021-11-26 11:51] LABS: INR 1.3 (0.8-1.2); PROTHROMBIN TIME 12.7 SECS (9.5-12.5)
--- NOTE | 2021-11-26 12:00 | NUR ---
Notes Patient is awake, alert and oriented x2. Daughter, Nichelle by bedside. Pt is sitting up in her chair, sleeping. No resp distress noted. Pt remains on 2 liters via NC, tolerating well. s/p EGD, pt to resume full liquid diet, tolerating well. Denies any pain at this time. IVF and IV ATB infusing well. Will continue to monitor.
[2021-11-26 12:12] LABS: ERYTHROCYTE SEDIMENTATION RATE 8 MM/HR (0-20)
--- NOTE | 2021-11-26 12:15 | NUR ---
Daughter, Nichelle by bedside, nurse updated her on pt status and plan of care.
[2021-11-26 12:35] LABS: NEUTROPHILS % (AUTO) 89.9 % (40.0-70.0)
[2021-11-26 12:39] VITALS: BP_SYST 161
[2021-11-26] MEDS: PANTOPRAZOLE SODIUM 40 MG TAB PO SCH (12:39)
[2021-11-26] MEDS: LOSARTAN POTASSIUM 50 MG TABLET (COZAAR) PO SCH (12:39)
[2021-11-26] MEDS: MEMANTINE HCL 5 MG TABLET PO SCH (12:40)
[2021-11-26] MEDS: METHYLPREDNISOLONE SOD SUCC 40 MG/ML VIAL IVP SCH ×3 (12:41→21:38)
[2021-11-26] MEDS: FLUCONAZOLE 100 mg/ NS 50 ML IV SCH (12:44)
--- NOTE | 2021-11-26 14:05 | NUR ---
CM: SPOKE WITH DR. SALEH AT BEDSIDE W/PT'S DAUGHTER PRESENT, DAUGHTER REFERRED TO POSSIBLE HOSPICE AT THIS TIME, BUT HASN'T CONFIRMED WITH OTHER FAMILY MEMBERS, DR. SALEH THEN INDICATED THAT HE WOULD NOT ORDER TX AT THIS TIME, AND WHEN FAMILY CONFIRM THEIR DECISION FOLLOW THRU WITH REAL ESTATE FIRM MANAGER FOR ADDITIONAL ASSISTANCE WITH HOSPICE, BE AWARE OF PICC LINE IN PLACE AND MAKE CERTAIN TO HAVE IT REMOVED ONCE DISCHARGED. Addendum: 11/26/21 at 1419 by Joselyn Cornelius RN REAL ESTATE FIRM MANAGER OSMAN, MADE AWARE OF FAMILY'S PLAN FOR HOSPICE, WILL F/U WITH DETAILS ONCE DECISION HAS BEEN MADE.
--- NOTE | 2021-11-26 16:04 | NUR ---
Discharge Planning: KASHIF confirmed with Mario at [facility] P#[phone] patient still going to Rm 29. KASHIF made Mario aware patient will not discharge today, november over weekend. MARGOTHP faxed pt referral to [facility] P#[phone] F#[phone] per family request, family discussing hospice.
[2021-11-26 16:43] VITALS: BP_SYST 138
--- NOTE | 2021-11-26 17:32 | NUR ---
Nutrition F/U Admitting Diagnosis Atrial Fibrillation Reviewed Pertinent Medical/Surgical Hx Medical Record Medical History Comment: CAD, CVA, DM, Dementia, HTN, hypothyroidism, CKD, asthma 11/23: Per physician notes, pt admitted to the hospital w/ atrial fibrillation and mild to moderate respiratory distress; pt was also found to have ARF on CKD, COPD, CHF, sepsis and leukocytosis; chest X-ray shows bilateral infiltrates; pt w/ possible aspiration; pt was lethargic and not eating well. SARS-CoV-2 Ag (Rapid) Negative 11/14 Subjective Information: RD bedside visit deferred d/t high workload. Per EMR review, pt has D/C planning orders for SNF versus home w/ health; EGD today revealed esophageal ulcer, gastritis, and duodenitis; pt is on 2 L O2 via NC; negligible PO intake records x7 meal records since 11/23; abd is soft and non-distended w/ hypoactive bowel sounds; LBM x3 11/25; Tyrese scale: 11, no PIs noted. Pt is not meeting nutritional needs. Current Diet Order/Nutrition Support: Full liquid x0 days Patient/Significant Other Unable To Verbalize Education Provided Not Indicated Pertinent Medications: Reviewed Pertinent Labs: BUN 62 H, CRE 1.09 WNL, BG 236 H, CRP 2.2 H, WBC 18.7 H Height (Feet) 5 feet Height (Inches) 0.00 inches Weight (Pounds) 161 pounds 00 stable since 11/23 Patient Weight 73.113 kg Body Mass Index 31.44 kg/m2 %IBW 161 [place]/Adjusted Body Weight 100#/45.5 kg, adj. IBW 115#/52.4 kg Recent Weight Change No - none reported per sawmill worker Weight Status Obese Last BM November 22, 2021 Usual Diet At Home Regular per sawmill worker Current % PO Negligible <25% Estimated Energy Expenditure (kcals/day) 1927-1368 kcals/day (30-35 kcals/kg adj. IBW d/t obesity and sepsis) Estimated Protein Required (g/day) 44-58 g/day (0.6-0.8 g/kg CBW d/t TRISH) Estimated Fluid Required (l/day) Per MD (ARF/CKD/CHF) Problem/Etiology/Signs/Symptoms Inadequate oral intake r/t unknown etiology AEB intakes of 25% or less of recorded meal. *Ongoing Altered nutrition-related labs R/T endocrine and renal dysfunction AEB abnormal BG, POC BG, BUN, and CRE lab values. *Ongoing Expected Outcomes/Goals Monitor tolerance of intake w/ goal of pt meeting greater than 80% of estimated needs, labs trending WNL, normal GI function, skin integrity, wt maintenance. Dietitian Recommendations * [facility], soft (low-fiber/bland) diet w/ Ensure Enlive TID if/when medically appropriate * Encourage PO intake Follow Up High Risk: F/U in 2-3 days Addendum: 11/26/21 at [address] CORRECTION: Dietitian Recommendations * [facility] to [facility], soft (low-fiber/bland) diet w/ Glucerna TID if/when medically appropriate * Encourage PO intake
--- NOTE | 2021-11-26 17:36 | NUR ---
Dietitian Recommendations * Consider advance to [facility], soft (low-fiber/bland) diet w/ Ensure Enlive TID if/when medically appropriate * Encourage PO intake LP, RD Please refer to Nutrition F/U for details.
--- NOTE | 2021-11-26 18:00 | NUR ---
DC Plan with [facility] tomorrow 11/27/21 Nurse s/w [facility] for report for patient to DC home with hospice. Pt to discharge home tomorrow: 11/27/21 at 1000 via [facility]. MIDLINE to be removed prior to discharge and medication reconciliation needed. Nurse s/w chet Mcmahon for all orders: DC home with hospice, DC MIDLINE, med recon completed, remove MID LINE prior to DC. Noted and carried out. Updated charge nurse. Will endorse to next nurse.
--- NOTE | 2021-11-26 18:21 | NUR ---
Closing Notes Patient is awake, alert and oriented x2. No resp distress noted. Breathing is even and unlabored, pt remains on 4 liters via NC, tolerating well. BANGURA. Pt shows no signs of pain at this time. MIDLINE on DELGADO, double lumen, saline lock at this time. Pending discharge home with hospice tomorrow. Pt remains on bedrest at this time. No abnormal bleeding noted. Cardiac monitoring, AFIB controlled. All needs met at this time. Safety and fall precautions in place. Bed in lowest position, alarm on, locked. Will continue to monitor.
--- NOTE | 2021-11-26 19:15 | NUR ---
OPENING NOTES Patient resting in bed - no s/s pain or distress noted. Respirations even and unlabored - head of bed elevated. IV site patent - no s/s redness, infection, or infiltration. Bed locked and in lowest position. Call light within reach. Bed alarm on.
[2021-11-26 20:00] VITALS: BP_SYST 19
[2021-11-26] MEDS: INSULIN GLARGINE 100 UNITS/ML 10 ML VIAL SUBCUT SCH (21:50)
--- NOTE | 2021-11-26 23:23 | NUR ---
TRANSFER OF CARE TO [facility] AT THIS TIME
--- NOTE | 2021-11-26 23:43 | NUR ---
RESUMED CARE OF THIS PT FROM JESSIE. PT RECEIVED IN NO ACUTE RESP. DISTRESS. AWAKE AND ALERT. NO C/O PAIN OR DISCOMFORT. SAFETY MEASURES IN PLACE. CALL LIGHT WITHIN REACH. WILL CONTINUE WITH PLAN OF CARE.
[2021-11-27] MEDS: DILTIAZEM HCL 60 MG TABLET PO SCH ×2 (00:25→06:06)
[2021-11-27 00:28] VITALS: BP_SYST 136
--- NOTE | 2021-11-27 01:55 | NUR ---
RESTING IN NO ACUTE DISTRESS, HOB ELEVATED. NO S/S OF PAIN OR DISCOMFORT AT THIS TIME. CALL LIGHT WITHIN REACH.
[2021-11-27] MEDS: NORMAL SALINE 5 ML DISP.SYRIN IVF SCH (06:00)
[2021-11-27] MEDS ORDERED: LEVOTHYROXINE SODIUM 0.075 MG TABLET PO SCH (06:00)
[2021-11-27] MEDS: MEROPENEM 500 MG in NS 50 ML IV SCH (06:02)
[2021-11-27] MEDS: METHYLPREDNISOLONE SOD SUCC 40 MG/ML VIAL IVP SCH (06:03)
[2021-11-27] MEDS: INSULIN REGULAR, HUMAN 100 UNITS/ML, 10 ML VIAL (humuLIN R) SUBCUT PRN (06:35)
--- NOTE | 2021-11-27 07:44 | NUR ---
RESTING AT THIS TIME, NO S/S OF PAIN OR DISCOMFORT. NO CHANGES IN VS. CALL LIGHT WITHIN REACH. WILL BE ENDORSED TO INCOMING SHIFT.
[2021-11-27 07:58] LABS: ANION GAP 5 (5-15); CALCIUM 8.4 mg/dL (8.4-11.0); CHLORIDE 109 mmol/L (98-107); CREATININE 1.13 mg/dL (0.55-1.30); GLUCOSE 259 mg/dL (70-99); POTASSIUM 5.2 mmol/L (3.5-5.1); SODIUM SERUM 144 mmol/L (136-145); UREA NITROGEN, BLOOD 57 mg/dL (8-21)
[2021-11-27 08:29] LABS: HEMATOCRIT 28.7 % (36-48); HEMOGLOBIN 9.3 g/dL (12.0-16.0); LYMPHOCYTES # (AUTO) 0.4 K/uL (1.0-5.5); LYMPHOCYTES % (AUTO) 2.5 % (20.5-51.5); MEAN CORPUSCULAR HEMOGLOBIN 30 pg (27-31); MEAN CORPUSCULAR HGB CONC 32 % (32-36); MEAN CORPUSCULAR VOLUME 92 fL (79.0-98.0); MONOCYTES # (AUTO) 0.7 K/uL (0.0-1.0); MONOCYTES % (AUTO) 4.2 % (1.7-9.3); NEUTROPHILS # (AUTO) 14.9 K/uL (1.8-7.7); NEUTROPHILS % (AUTO) 93.3 % (40.0-70.0); RED BLOOD CELL COUNT(AUTO) 3.13 MIL/uL (4.2-6.2); RED CELL DISTRIBUTION WIDTH 14.4 % (9.0-15.0)
--- NOTE | 2021-11-27 08:47 | NUR ---
Received patient in bed resting comfortably HOB elevated. Patient presents AAOX2, calm and cooperative. No s/sx of pain or discomfort. Respirations are non-labored on room air. Tele-monitor present and active. Skin is clean, warm and dry to touch. IV access is patent, dry and intact. Bed is locked in lowest position, call light in reach. Nurse will continue care and changes in status.
[2021-11-27] MEDS: APIXABAN 2.5 MG TABLET PO SCH (09:00)
[2021-11-27] MEDS: LEVOTHYROXINE SODIUM 0.075 MG TABLET PO SCH (09:00)
[2021-11-27] MEDS: MEMANTINE HCL 5 MG TABLET PO SCH (09:00)
[2021-11-27] MEDS: LOSARTAN POTASSIUM 50 MG TABLET (COZAAR) PO SCH (09:00)
[2021-11-27] MEDS: PANTOPRAZOLE SODIUM 40 MG TAB PO SCH (09:00)
[2021-11-27 09:19] LABS: C-REACTIVE PROTEIN QUANT 1.7 mg/dL (0-0.5)
[2021-11-27 09:52] VITALS: BP_SYST 133
--- NOTE | 2021-11-27 10:15 | NUR ---
Patient in bed resting comfortably HOB elevated. Patient presents AAOX2, calm and cooperative. No s/sx of pain or discomfort. Respirations are non-labored on 4LPM. Tele-monitor discontinued. Skin is clean, warm and dry to touch. IV access is patent, dry and intact. Patient family given discharge and follow up instruction, medication education given, family expresses understanding. Patient has all personal belongings. Patient transferred home with daughter via ambulance.
[2021-11-27 10:20] VITALS: BP_SYST 133
[2021-11-27 11:01] LABS: PLATELET COUNT (AUTO) 29 K/uL (130-430)
[2021-11-27 11:46] LABS: ERYTHROCYTE SEDIMENTATION RATE 6 MM/HR (0-20)
--- NOTE | 2021-11-29 10:13 | NUR ---
[facility] requested DC to Hospice order-It was faxed to [phone]
== END 2021-11-27 10:25 | disposition hospice, home (50) | DRG 871 ==
LOC: SED 10:12 → STU 13:03 → SMU 11-27 09:19
PROVIDERS: ADMIT Preventive Medicine Preventive Medicine/Occupational Environmental Medicine; ATTEND Preventive Medicine Preventive Medicine/Occupational Environmental Medicine
PROC: 5A09457 Assistance with Respiratory Ventilation, 24-96 Consecutive Hours, Continuous Positive Airway Pressure (ICD-10-PCS; 2021-11-16)
PROC: 5A09357 Assistance with Respiratory Ventilation, Less than 24 Consecutive Hours, Continuous Positive Airway Pressure (ICD-10-PCS; 2021-11-22)
PROC: 0DB78ZX Excision of Stomach, Pylorus, Via Natural or Artificial Opening Endoscopic, Diagnostic (ICD-10-PCS; principal; 2021-11-26 08:35)
DX: A41.9 Sepsis, unspecified organism (principal); I21.A1 Myocardial infarction type 2; E43 Unspecified severe protein-calorie malnutrition; J96.21 Acute and chronic respiratory failure with hypoxia; K29.81 Duodenitis with bleeding; K22.11 Ulcer of esophagus with bleeding; K29.71 Gastritis, unspecified, with bleeding; J18.9 Pneumonia, unspecified organism; N17.9 Acute kidney failure, unspecified; J44.1 Chronic obstructive pulmonary disease with (acute) exacerbation; J44.0 Chronic obstructive pulmonary disease with (acute) lower respiratory infection; E87.1 Hypo-osmolality and hyponatremia; E87.0 Hyperosmolality and hypernatremia; I13.0 Hypertensive heart and chronic kidney disease with heart failure and stage 1 through stage 4 chronic kidney disease, or unspecified chronic kidney disease; D64.9 Anemia, unspecified; I48.91 Unspecified atrial fibrillation; N18.9 Chronic kidney disease, unspecified; E83.41 Hypermagnesemia; E83.51 Hypocalcemia; E83.52 Hypercalcemia; D69.6 Thrombocytopenia, unspecified; E88.09 Other disorders of plasma-protein metabolism, not elsewhere classified; E03.9 Hypothyroidism, unspecified; E11.21 Type 2 diabetes mellitus with diabetic nephropathy; F03.90 Unspecified dementia, unspecified severity, without behavioral disturbance, psychotic disturbance, mood disturbance, and anxiety; I25.10 Atherosclerotic heart disease of native coronary artery without angina pectoris; T38.0X5A Adverse effect of glucocorticoids and synthetic analogues, initial encounter; E11.65 Type 2 diabetes mellitus with hyperglycemia; G47.30 Sleep apnea, unspecified; B95.8 Unspecified staphylococcus as the cause of diseases classified elsewhere; B96.89 Other specified bacterial agents as the cause of diseases classified elsewhere; Z20.822 Contact with and (suspected) exposure to COVID-19; I50.9 Heart failure, unspecified; E11.22 Type 2 diabetes mellitus with diabetic chronic kidney disease; Z86.73 Personal history of transient ischemic attack (TIA), and cerebral infarction without residual deficits; Z79.01 Long term (current) use of anticoagulants; Z95.2 Presence of prosthetic heart valve; Y92.89 Other specified places as the place of occurrence of the external cause; I25.2 Old myocardial infarction
CPT/HCPCS: 36415; 36600; 43235; 71045; 71250-TC; 76376; 80048; 80053; 82272; 82607; 82728; 82746; 82803-TC; 82962; 83540; 83550; 83735; 83880; 84100; 84484; 85025; 85044; 85610-TC; 85651-TC; 85730-TC; 86140; 87040; 92610-GN; 93005; 93306; 94640; 94660; 94760; 96374; 96375; 97110-GP; 97116-GP; 97530-GP; 99291; G0378; J0456; J0696; J1030; J1450; J1815; J1940; J2020; J2060; J2185; J2250; J3010; J3490; J7050; J7613